=== PATIENT | female | born 1955 | race Caucasian/White ===

== ENCOUNTER → 2016-12-11 | Outpatient (CLI) | payer OTHER ==
[2016-12-11 10:30] LABS: Basophils # (auto) 0 uL; Basophils % (auto) 0.5 % (0.0-2.0); Eosinophils # (auto) 0.1 uL; Eosinophils % (auto) 1.7 % (0.0-7.0); Hematocrit 43.5 % (36.0-46.0); Hemoglobin 14.7 g/dL (12.2-16.2); Lymphocytes % (auto) 32.6 % (10.0-50.0); Mean Corpuscular Hemoglobin 27.8 pg (28.0-32.0); Mean Corpuscular Hgb Conc. 33.8 g/dL (32.0-36.0); Mean Corpuscular Volume 82.4 fL (80.0-100.0); Mean Platelet Volume 10.5 fL (7.4-10.4); Monocytes # (auto) 0.4 uL; Neutrophils # (auto) 3.6 uL; Neutrophils % (auto) 59.2 % (37.0-80.0); Platelet Count (auto) 203 10^3/uL (140-450)
[2016-12-11 10:49] LABS: Albumin 4.1 g/dL (3.4-5.0); BUN/Creatinine Ratio 17.4; Bilirubin, Total 0.7 mg/dL (0.2-1.0); Calcium 9.4 mg/dL (8.5-10.1); Potassium 3.8 mmol/L (3.5-5.1)
== END | disposition home or self-care (01) ==
LOC: LAB 08:50
PROVIDERS: ATTEND Internal Medicine
DX: R10.9 Unspecified abdominal pain (principal); E10.9 Type 1 diabetes mellitus without complications
CPT/HCPCS: 36415; 80053; 85025; 85049; 86038; 86141; 86431; 86704; 86705; 86706; 86803; 87340

== ENCOUNTER → 2017-02-13 | Outpatient (CLI) | payer OTHER | END | disposition home or self-care (01) | LOC: LAB 11:23 | DX: M10.00 Idiopathic gout, unspecified site (principal); M06.9 Rheumatoid arthritis, unspecified; M25.50 Pain in unspecified joint; M45.0 Ankylosing spondylitis of multiple sites in spine | CPT/HCPCS: 36415; 84550 ==

== ENCOUNTER → 2017-04-02 | Outpatient (CLI) | payer OTHER, MEDICAID ==
[2017-04-02 10:54] LABS: Basophils # (auto) 0 uL; Basophils % (auto) 0.7 % (0.0-2.0); Eosinophils # (auto) 0.1 uL; Eosinophils % (auto) 1.5 % (0.0-7.0); Hematocrit 39.3 % (36.0-46.0); Hemoglobin 13.4 g/dL (12.2-16.2); Lymphocytes # (auto) 1.8 uL; Lymphocytes % (auto) 37.1 % (10.0-50.0); Mean Corpuscular Hemoglobin 28.4 pg (28.0-32.0); Mean Corpuscular Volume 83.3 fL (80.0-100.0); Mean Platelet Volume 11.7 fL (7.4-10.4); Monocytes # (auto) 0.3 uL; Monocytes % (auto) 6.3 % (0.0-12.0); Neutrophils # (auto) 2.7 uL; Neutrophils % (auto) 54.4 % (37.0-80.0); Platelet Count (auto) 160 10^3/uL (140-450); Red Cell Distribution Width 14.8 % (11.6-16.0); White Blood Cell 4.9 10^3/uL (4.4-10.8)
[2017-04-02 11:02] LABS: Urine Protein/Creatinine Ratio 0.62
[2017-04-02 11:05] LABS: Albumin 3.9 g/dL (3.4-5.0); BUN/Creatinine Ratio 11.4; Bilirubin, Total 0.6 mg/dL (0.2-1.0); Calcium 9.1 mg/dL (8.5-10.1); Potassium 3.7 mmol/L (3.5-5.1); Total Protein 7.4 g/dL (6.4-8.2)
== END | disposition home or self-care (01) ==
LOC: LAB 08:31
DX: E11.65 Type 2 diabetes mellitus with hyperglycemia (principal); E28.2 Polycystic ovarian syndrome; E55.9 Vitamin D deficiency, unspecified
CPT/HCPCS: 36415; 80053; 80061; 82043; 82306; 82570; 83036; 84156; 84403; 84443; 85025; 85652; 86141

== ENCOUNTER → 2017-06-19 | Outpatient (CLI) | payer OTHER, MEDICAID ==
[2017-06-19 15:19] LABS: Basophils # (auto) 0 uL; Basophils % (auto) 0.4 % (0.0-2.0); CONDITION Y; Eosinophils # (auto) 0.1 uL; Eosinophils % (auto) 1.3 % (0.0-7.0); Hematocrit 38.9 % (36.0-46.0); Hemoglobin 13.6 g/dL (12.2-16.2); Lymphocytes # (auto) 2.3 uL; Lymphocytes % (auto) 33.4 % (10.0-50.0); Mean Corpuscular Hemoglobin 30.8 pg (28.0-32.0); Mean Corpuscular Hgb Conc. 35.1 g/dL (32.0-36.0); Mean Corpuscular Volume 87.9 fL (80.0-100.0); Mean Platelet Volume 10.6 fL (7.4-10.4); Monocytes # (auto) 0.5 uL; Monocytes % (auto) 7.6 % (0.0-12.0); Neutrophils % (auto) 57.3 % (37.0-80.0); Platelet Count (auto) 189 10^3/uL (140-450); Red Cell Distribution Width 15.4 % (11.6-16.0)
[2017-06-19 15:30] LABS: Albumin 4.2 g/dL (3.4-5.0); BUN/Creatinine Ratio 15.4; Bilirubin, Total 0.6 mg/dL (0.2-1.0); Calcium 9.5 mg/dL (8.5-10.1); Potassium 3.7 mmol/L (3.5-5.1); Total Protein 7.9 g/dL (6.4-8.2)
== END | disposition home or self-care (01) ==
LOC: LAB 14:50
DX: I10 Essential (primary) hypertension (principal); M25.50 Pain in unspecified joint; D64.9 Anemia, unspecified; M06.9 Rheumatoid arthritis, unspecified
CPT/HCPCS: 36415; 80053; 85025; 85652; 86141

== ENCOUNTER → 2017-08-06 | Outpatient (CLI) | payer OTHER, MEDICAID ==
[2017-08-06 07:30] LABS: Cholesterol 189 mg/dL (< 200); HDL Cholesterol 38 mg/dL (40-59); LDL Cholesterol 112 mg/dL (< 100); Triglycerides 271 mg/dL (< 150)
[2017-08-06 07:39] LABS: INR 1.12 (0.9-1.15); Partial Thromboplastin Time 28.2 sec (22.64-33.71); Prothrombin Time 12.2 sec (9.37-12.3)
== END | disposition home or self-care (01) ==
LOC: LAB 06:48
PROVIDERS: ATTEND Internal Medicine
DX: K76.0 Fatty (change of) liver, not elsewhere classified (principal); E11.9 Type 2 diabetes mellitus without complications; E78.00 Pure hypercholesterolemia, unspecified
CPT/HCPCS: 36415; 80061; 83036; 85610; 85730

== ENCOUNTER → 2017-08-21 | Outpatient (CLI) | payer OTHER, MEDICAID ==
[2017-08-21 11:16] LABS: Albumin 4.2 g/dL (3.4-5.0); Bilirubin, Direct 0.2 mg/dL (0-0.2); Bilirubin, Total 0.6 mg/dL (0.2-1.0); Total Protein 7.8 g/dL (6.4-8.2)
[2017-08-23 05:06] LABS: Ceruloplasmin 31.7 mg/dL (19.0-39.0)
== END | disposition home or self-care (01) ==
LOC: LAB 09:41
PROVIDERS: ATTEND Internal Medicine Gastroenterology
DX: Z87.19 Personal history of other diseases of the digestive system (principal); Z79.899 Other long term (current) drug therapy
CPT/HCPCS: 36415; 80076; 82390; 83540; 83550

== ENCOUNTER → 2017-10-03 | Outpatient (CLI) | payer OTHER, MEDICAID ==
[2017-10-03 11:10] LABS: Basophils # (auto) 0 uL; Basophils % (auto) 0.7 % (0.0-2.0); Eosinophils # (auto) 0.1 uL; Hematocrit 40.4 % (36.0-46.0); Hemoglobin 13.8 g/dL (12.2-16.2); Lymphocytes # (auto) 1.7 uL; Lymphocytes % (auto) 28.2 % (10.0-50.0); Mean Corpuscular Hemoglobin 29.7 pg (28.0-32.0); Mean Corpuscular Hgb Conc. 34.2 g/dL (32.0-36.0); Mean Corpuscular Volume 86.8 fL (80.0-100.0); Monocytes # (auto) 0.5 uL; Monocytes % (auto) 7.7 % (0.0-12.0); Neutrophils # (auto) 3.7 uL; Neutrophils % (auto) 62.4 % (37.0-80.0); Platelet Count (auto) 153 10^3/uL (140-450); Red Blood Cells 4.65 10^6/uL (4.0-5.20); Red Cell Distribution Width 14.4 % (11.8-14.3); White Blood Cell 5.9 10^3/uL (4.4-10.8)
[2017-10-03 12:11] LABS: BUN/Creatinine Ratio 13.6; Bilirubin, Total 0.5 mg/dL (0.2-1.0); CRP High Sensitivity 0.88 mg/dL (< 0.3); Calcium 9.2 mg/dL (8.5-10.1); Total Protein 7.9 g/dL (6.4-8.2)
== END | disposition home or self-care (01) ==
LOC: LAB 10:40
DX: I10 Essential (primary) hypertension (principal); D64.9 Anemia, unspecified; M25.50 Pain in unspecified joint; M06.9 Rheumatoid arthritis, unspecified; I70.0 Atherosclerosis of aorta; E78.00 Pure hypercholesterolemia, unspecified; Z79.899 Other long term (current) drug therapy
CPT/HCPCS: 36415; 80053; 85025; 85652; 86141

== ENCOUNTER → 2017-12-10 | Outpatient (CLI) | payer OTHER, MEDICAID ==
[~2017-12-10] MED LIST: ARIP1TAB7 PO; ASPI-231 PO; BUPR-40 PO; ESCI10TA PO; FENO5TAB PO; FINA5TAB4 PO; FURO20TA3 PO; GABA250S2 PO; HYDR-3682 PO; HYDR-4683 PO; HYDR50TA69 PO; INSLANTI SC; LACT10SO66 PO; LIDO5DIS21 TOP; OMEP20TA PO; POTA10TA51 PO
[2017-12-10 11:59] LABS: Basophils # (auto) 0.1 uL; Basophils % (auto) 0.8 % (0.0-2.0); Eosinophils # (auto) 0.1 uL; Eosinophils % (auto) 1.5 % (0.0-7.0); Hematocrit 42.1 % (36.0-46.0); Hemoglobin 14.6 g/dL (12.2-16.2); Lymphocytes # (auto) 2.3 uL; Lymphocytes % (auto) 32.2 % (10.0-50.0); Mean Corpuscular Hemoglobin 29.3 pg (28.0-32.0); Mean Corpuscular Hgb Conc. 34.7 g/dL (32.0-36.0); Mean Corpuscular Volume 84.5 fL (80.0-100.0); Monocytes # (auto) 0.6 uL; Monocytes % (auto) 8.9 % (0.0-12.0); Neutrophils % (auto) 56.6 % (37.0-80.0); Nucleated Red Blood Cells % 0.2 %; Platelet Count (auto) 187 10^3/uL (140-450); Red Blood Cells 4.98 10^6/uL (4.0-5.20); Red Cell Distribution Width 15.2 % (11.8-14.3); White Blood Cell 7.1 10^3/uL (4.4-10.8)
[2017-12-10 12:29] LABS: Albumin 4.1 g/dL (3.4-5.0); BUN/Creatinine Ratio 12.1; Bilirubin, Total 0.7 mg/dL (0.2-1.0); Calcium 9.5 mg/dL (8.5-10.1); Magnesium 2.2 mg/dL (1.6-2.6); Total Protein 7.8 g/dL (6.4-8.2)
== END | disposition home or self-care (01) ==
LOC: LAB 11:26
PROVIDERS: ATTEND Internal Medicine
DX: R25.2 Cramp and spasm (principal); E11.9 Type 2 diabetes mellitus without complications
CPT/HCPCS: 36415; 80053; 82550; 83036; 83735; 85025

== ENCOUNTER 2017-12-21 13:48 | Inpatient (IN) | payer OTHER, MEDICAID ==
[~2017-12-21] VITALS: Ht 165.1 cm; Wt 135.9 kg
[2017-12-21 14:36] LABS: Basophils # (auto) 0.1 uL; Basophils % (auto) 0.9 % (0.0-2.0); Eosinophils # (auto) 0.1 uL; Eosinophils % (auto) 1.4 % (0.0-7.0); Hematocrit 40.8 % (36.0-46.0); Hemoglobin 13.9 g/dL (12.2-16.2); Lymphocytes # (auto) 1.8 uL; Mean Corpuscular Volume 85.2 fL (80.0-100.0); Monocytes # (auto) 0.5 uL; Monocytes % (auto) 7.5 % (0.0-12.0); Neutrophils % (auto) 62.2 % (37.0-80.0); Nucleated Red Blood Cells % 0.2 %; Platelet Count (auto) 179 10^3/uL (140-450); Red Blood Cells 4.79 10^6/uL (4.0-5.20); Red Cell Distribution Width 15.6 % (11.8-14.3); White Blood Cell 6.3 10^3/uL (4.4-10.8)
[2017-12-21 14:51] LABS: BUN/Creatinine Ratio 14.6; Bilirubin, Total 0.5 mg/dL (0.2-1.0); Calcium 9.1 mg/dL (8.5-10.1); Potassium 4.2 mmol/L (3.5-5.1); Total Protein 7.7 g/dL (6.4-8.2)
[2017-12-21] MEDS ORDERED: SODIUM CHLORIDE 0.9% 1,000 ML IVB ONE (16:31)
[2017-12-21 16:56] LABS: Magnesium 2.3 mg/dL (1.6-2.6)
[2017-12-21 17:05] LABS: Urine Bacteria NONE SEEN /hpf (None Seen); Urine Blood Negative /uL (Negative); Urine Specific Gravity 1.016 (1.001-1.035); Urine WBC 1 /hpf (0 - 5)
[2017-12-21] MEDS ORDERED: cefTRIAXone 1GM/10ml IVPUSH 10 ML IV ONE (18:00)
[2017-12-21 18:45] LABS: INR 1.03 (0.9-1.15); Partial Thromboplastin Time 24.6 sec (22.64-33.71); Prothrombin Time 11.2 sec (9.37-12.3)
[2017-12-21] MEDS ORDERED: OMEP20TA PO (20:34)
[2017-12-21] MEDS ORDERED: FINA5TAB4 PO (20:37)
[2017-12-21] MEDS ORDERED: ASPI-231 PO (20:37)
[2017-12-21] MEDS ORDERED: HYDR-4683 PO (20:38)
[2017-12-21] MEDS ORDERED: GABA250S2 PO (20:39)
[2017-12-21] MEDS ORDERED: FURO20TA3 PO (20:40)
[2017-12-21] MEDS ORDERED: POTA10TA51 PO (20:41)
[2017-12-21] MEDS ORDERED: LACT10SO66 PO (20:42)
[2017-12-21] MEDS ORDERED: LIDO5DIS21 TOP (20:43)
[2017-12-21] MEDS ORDERED: HYDR50TA69 PO (20:44)
[2017-12-21] MEDS ORDERED: HYDR-3682 PO (20:44)
[2017-12-21] MEDS: SODIUM CHLORIDE 0.9% 1,000 ML IV SCH (21:25)
[2017-12-21] MEDS ORDERED: ACETAMINOPHEN 325 MG TAB PO PRN (21:30)
[2017-12-21] MEDS ORDERED: DEXTROSE (50%) 50ML SYRG IV PRN (21:30)
[2017-12-21] MEDS ORDERED: TEMAZEPAM 15 MG CAP PO PRN (21:30)
[2017-12-21] MEDS ORDERED: NITROGLYCERIN 0.4 MG SL TAB SL PRN (21:30)
[2017-12-21] MEDS ORDERED: MORPHINE SULF INJ 2 MG/ML SYRINGE 1ML IV PRN (21:30)
[2017-12-21] MEDS ORDERED: ABILIFY 30 MG PO SCH (22:00)
[2017-12-21] MEDS: PANTOPRAZOLE 40 MG/10 ML VIAL IV SCH (22:06)
[2017-12-21] MEDS: FAMOTIDINE 20 MG TAB PO SCH (22:07)
[2017-12-21] MEDS: GABAPENTIN 300 MG CAP PO SCH (22:07)
[2017-12-21] MEDS: hydrOXYzine HCL 10 MG TAB PO PRN (22:18)
[2017-12-21 22:30] VITALS: BP 113/58
[2017-12-21] MEDS ORDERED: INSLANTI SC (22:38)
[2017-12-21 23:08] LABS: Hematocrit 37.2 % (36.0-46.0)
[2017-12-21] MEDS: ACCU-CHEK COMFORT CURVE STRIP VI SCH (23:52)
[2017-12-21] MEDS: InsuLIN REG 1unit/0.01ml Soln (100units/ml) SC SCH (23:56)
[2017-12-22] MEDS ORDERED: FENO5TAB PO (00:27)
[2017-12-22] MEDS ORDERED: BUPR-40 PO (00:27)
[2017-12-22] MEDS ORDERED: HYDR50TA69 PO (00:27)
[2017-12-22] MEDS ORDERED: ARIP1TAB7 PO (00:27)
[2017-12-22] MEDS ORDERED: ESCI10TA PO (00:27)
[2017-12-22] MEDS: HYDROcodone-ACET 5/325MG TAB PO PRN ×4 (00:43→16:56)
[2017-12-22 05:00] VITALS: BP 116/74
[2017-12-22] MEDS: GABAPENTIN 300 MG CAP PO SCH ×3 (05:22→21:37)
[2017-12-22] MEDS: ACCU-CHEK COMFORT CURVE STRIP VI SCH ×4 (05:22→23:58)
[2017-12-22] MEDS: InsuLIN REG 1unit/0.01ml Soln (100units/ml) SC SCH ×4 (05:57→23:58)
[2017-12-22 06:12] LABS: Basophils # (auto) 0 uL; Basophils % (auto) 0.7 % (0.0-2.0); Eosinophils # (auto) 0.1 uL; Eosinophils % (auto) 2.3 % (0.0-7.0); Hematocrit 37.2 % (36.0-46.0); Hemoglobin 12.8 g/dL (12.2-16.2); Lymphocytes # (auto) 1.4 uL; Lymphocytes % (auto) 30.8 % (10.0-50.0); Mean Corpuscular Hgb Conc. 34.5 g/dL (32.0-36.0); Mean Corpuscular Volume 84.2 fL (80.0-100.0); Monocytes # (auto) 0.4 uL; Monocytes % (auto) 8.6 % (0.0-12.0); Neutrophils # (auto) 2.6 uL; Neutrophils % (auto) 57.6 % (37.0-80.0); Platelet Count (auto) 136 10^3/uL (140-450); Red Blood Cells 4.41 10^6/uL (4.0-5.20); Red Cell Distribution Width 15.2 % (11.8-14.3); White Blood Cell 4.5 10^3/uL (4.4-10.8)
[2017-12-22 06:33] LABS: Albumin 3.5 g/dL (3.4-5.0); BUN/Creatinine Ratio 15.5; Bilirubin, Total 0.6 mg/dL (0.2-1.0); Calcium 8.3 mg/dL (8.5-10.1); Potassium 3.9 mmol/L (3.5-5.1); Total Protein 6.7 g/dL (6.4-8.2)
[2017-12-22 09:00] VITALS: BP 119/77
[2017-12-22] MEDS: buPROPion HCL 75 MG TAB PO SCH (10:57)
[2017-12-22] MEDS: FUROSEMIDE 40 MG TAB PO SCH (10:57)
[2017-12-22] MEDS: FAMOTIDINE 20 MG TAB PO SCH ×2 (10:57→21:37)
[2017-12-22] MEDS: PANTOPRAZOLE 40 MG/10 ML VIAL IV SCH ×2 (10:57→21:36)
[2017-12-22] MEDS: ENOXAPARIN SOD 40 MG/0.4 ML SYRINGE SC SCH (10:58)
[2017-12-22] MEDS ORDERED: GOLYTELY 4L KIT PO ONE (12:15)
[2017-12-22] MEDS ORDERED: GOLYTELY 4L KIT ONE (12:24)
[2017-12-22 12:31] VITALS: BP 133/88
[2017-12-22] MEDS: ONDANSETRON HCL 4 MG/2 ML VIAL IV PRN ×2 (14:45→18:59)
[2017-12-22] MEDS: hydrOXYzine HCL 10 MG TAB PO PRN (14:52)
[2017-12-22] MEDS ORDERED: cefTRIAXone 1GM/10ml IVPUSH 10 ML IV ONE (15:45)
[2017-12-22 16:30] VITALS: BP 117/57
[2017-12-22] MEDS: SODIUM CHLORIDE 0.9% 1,000 ML IV SCH (16:56)
[2017-12-22 21:30] VITALS: BP 117/57
[2017-12-22 22:20] VITALS: BP 117/67
[2017-12-23] MEDS: SODIUM CHLORIDE 0.9% 1,000 ML IV SCH ×2 (00:04→14:27)
[2017-12-23] MEDS: HYDROcodone-ACET 5/325MG TAB PO PRN ×2 (00:12→20:03)
[2017-12-23 04:27] VITALS: BP 138/68
[2017-12-23] MEDS: GABAPENTIN 300 MG CAP PO SCH ×3 (05:21→21:06)
[2017-12-23] MEDS: InsuLIN REG 1unit/0.01ml Soln (100units/ml) SC SCH ×5 (05:33→23:51)
[2017-12-23] MEDS: ACCU-CHEK COMFORT CURVE STRIP VI SCH ×4 (05:34→23:47)
[2017-12-23] MEDS ORDERED: GOLYTELY 4L KIT PO ONE (06:00)
[2017-12-23 08:00] VITALS: BP 119/72
[2017-12-23] MEDS ORDERED: MIDAZOLAM HCL 5 MG/ML-1ML VIAL ONE (08:17)
[2017-12-23] MEDS ORDERED: SODIUM CHLORIDE LOCK 10 ML ONE (08:17)
[2017-12-23] MEDS ORDERED: fentaNYL CITRATE 100 MCG/2 ML VL ONE (08:18)
[2017-12-23] MEDS ORDERED: diphenhdrAMINE HCL 50 MG/1 ML VL ONE (08:18)
[2017-12-23 09:00] VITALS: BP 119/72
[2017-12-23] MEDS: PANTOPRAZOLE 40 MG/10 ML VIAL IV SCH ×2 (09:16→21:05)
[2017-12-23] MEDS: ENOXAPARIN SOD 40 MG/0.4 ML SYRINGE SC SCH (09:16)
[2017-12-23] MEDS: cefTRIAXone 1GM/10ml IVPUSH 10 ML IV SCH (09:17)
[2017-12-23] MEDS: FAMOTIDINE 20 MG TAB PO SCH ×2 (09:18→21:06)
[2017-12-23] MEDS: buPROPion HCL 75 MG TAB PO SCH (09:18)
[2017-12-23] MEDS: FUROSEMIDE 40 MG TAB PO SCH (09:18)
[2017-12-23] MEDS ORDERED: fentaNYL 100MCG/HR 100 MCG/HR PAT TD ONE (13:22)
[2017-12-23] MEDS ORDERED: MIDAZOLAM HCL 1MG/1ML-2 ML VIAL IV ONE (13:22)
[2017-12-23] MEDS ORDERED: PROPOFOL 10 MG/ML 100ML BOTTLE IV ONE (13:22)
[2017-12-23 17:03] VITALS: BP 105/48
[2017-12-23] MEDS ORDERED: ABILIFY 2 MG PO SCH (22:00)
[2017-12-23 22:48] VITALS: BP 112/46
[2017-12-24] MEDS: HYDROcodone-ACET 5/325MG TAB PO PRN (00:07)
[2017-12-24] MEDS: SODIUM CHLORIDE 0.9% 1,000 ML IV SCH (02:15)
[2017-12-24] MEDS: ACCU-CHEK COMFORT CURVE STRIP VI SCH ×2 (05:39→12:28)
[2017-12-24] MEDS: GABAPENTIN 300 MG CAP PO SCH (05:39)
[2017-12-24] MEDS: InsuLIN REG 1unit/0.01ml Soln (100units/ml) SC SCH ×2 (05:39→12:28)
[2017-12-24 06:23] VITALS: BP 127/67
[2017-12-24 08:00] VITALS: BP 123/64
[2017-12-24 09:00] VITALS: BP 123/64
[2017-12-24] MEDS: FUROSEMIDE 40 MG TAB PO SCH (10:00)
[2017-12-24] MEDS ORDERED: HYDROCORTISONE ACET 25 MG RECTAL SUPP PR SCH (10:00)
[2017-12-24] MEDS ORDERED: buPROPion HCL 75 MG TAB ONE (10:23)
[2017-12-24] MEDS: FAMOTIDINE 20 MG TAB PO SCH (10:35)
[2017-12-24] MEDS: PANTOPRAZOLE 40 MG/10 ML VIAL IV SCH (10:37)
[2017-12-24] MEDS: buPROPion HCL 75 MG TAB PO SCH (10:37)
[2017-12-24] MEDS: ENOXAPARIN SOD 40 MG/0.4 ML SYRINGE SC SCH (10:37)
[2017-12-24] MEDS: cefTRIAXone 1GM/10ml IVPUSH 10 ML IV SCH (10:38)
[2017-12-24 11:24] VITALS: BP 122/64
== END 2017-12-24 14:00 | disposition home or self-care (01) | DRG 377 ==
LOC: ER 13:48 → TELE 13:49 → TELE-CENTR 22:30
PROVIDERS: ADMIT Nurse Practitioner; ATTEND Family Medicine
PROC: 0DJD8ZZ Inspection of Lower Intestinal Tract, Via Natural or Artificial Opening Endoscopic (ICD-10-PCS; principal; 2017-12-23 12:27)
DX: K62.5 Hemorrhage of anus and rectum (principal); J18.1 Lobar pneumonia, unspecified organism; I11.0 Hypertensive heart disease with heart failure; E11.65 Type 2 diabetes mellitus with hyperglycemia; I50.9 Heart failure, unspecified; K76.0 Fatty (change of) liver, not elsewhere classified; E66.01 Morbid (severe) obesity due to excess calories; J44.0 Chronic obstructive pulmonary disease with (acute) lower respiratory infection; F32.9 Major depressive disorder, single episode, unspecified; M19.90 Unspecified osteoarthritis, unspecified site; K64.4 Residual hemorrhoidal skin tags; K64.8 Other hemorrhoids; Z79.4 Long term (current) use of insulin; Z68.42 Body mass index [BMI] 45.0-49.9, adult; Z90.710 Acquired absence of both cervix and uterus
CPT/HCPCS: 36415; 45378; 51702; 71045; 74176; 80053; 81001; 82962; 83036; 83690; 83735; 84443; 85014; 85018; 85025; 85610; 85730; 86850; 86900; 86901; 87040; 93005; 94660; 94761; 96361; 96372; 96374; C9113; J1815; J2250; J2405; J2704

== ENCOUNTER 2019-03-25 22:53 | Emergency (ER) | payer OTHER, MEDICAID ==
[~2019-03-25] VITALS: Ht 162.6 cm; Wt 135.2 kg
[2019-03-26 02:01] LABS: Basophils # (auto) 0.1 uL; Basophils % (auto) 0.9 % (0.0-2.0); Eosinophils # (auto) 0.1 uL; Eosinophils % (auto) 1.7 % (0.0-7.0); Hemoglobin 13.8 g/dL (12.2-16.2); Lymphocytes # (auto) 1.5 uL; Lymphocytes % (auto) 20.5 % (10.0-50.0); Mean Corpuscular Hemoglobin 29.1 pg (28.0-32.0); Mean Corpuscular Hgb Conc. 34.6 g/dL (32.0-36.0); Mean Corpuscular Volume 84.2 fL (80.0-100.0); Monocytes # (auto) 0.7 uL; Neutrophils # (auto) 4.9 uL; Neutrophils % (auto) 67.9 % (37.0-80.0); Platelet Count (auto) 159 10^3/uL (140-450); Red Blood Cells 4.75 10^6/uL (4.0-5.20); Red Cell Distribution Width 14.3 % (11.8-14.3); White Blood Cell 7.3 10^3/uL (4.4-10.8)
[2019-03-26 02:11] LABS: INR 1.04 (0.9-1.15); Partial Thromboplastin Time 28.8 sec (23.78-33.04); Prothrombin Time 11.1 sec (9.27-12.13)
[2019-03-26 02:12] LABS: Albumin 3.8 g/dL (3.4-5.0); Anion Gap 10 (5-15); Blood Urea Nitrogen 12 mg/dL (7-18); Carbon Dioxide 23 mmol/L (21-32); Chloride 105 mmol/L (98-107); Glucose 174 mg/dL (74-106); Potassium 3.8 mmol/L (3.5-5.1); Sodium 138 mmol/L (136-145)
[2019-03-26 02:15] LABS: Alanine Aminotransferase 64 U/L (13-56); Aspartate Aminotransferase 33 U/L (15-37); GFR African American 93 mL/min; GFR Non-African American 77 mL/min
[2019-03-26 02:19] LABS: Alkaline Phosphatase 120 U/L (45-117); Bilirubin, Total 0.6 mg/dL (0.2-1.0); Total Protein 7.6 g/dL (6.4-8.2)
[2019-03-26 07:48] VITALS: BP 140/71
== END 2019-03-26 09:04 | disposition home or self-care (01) ==
LOC: ER 22:55
DX: K64.9 Unspecified hemorrhoids (principal); I11.0 Hypertensive heart disease with heart failure; I50.9 Heart failure, unspecified; E11.9 Type 2 diabetes mellitus without complications; Z90.710 Acquired absence of both cervix and uterus; Z88.8 Allergy status to other drugs, medicaments and biological substances; Z79.82 Long term (current) use of aspirin; Z79.4 Long term (current) use of insulin; Z79.899 Other long term (current) drug therapy
CPT/HCPCS: 36415; 74176; 80053; 84484; 85025; 85610; 85730; 94761

== ENCOUNTER 2019-07-05 10:04 | Emergency (ER) | payer OTHER, MEDICAID ==
[~2019-07-05] VITALS: Ht 160 cm; Wt 136.1 kg
[~2019-07-05 10:04] MED LIST changes: -HYDR-4683 PO; +HYDR-4833 PO; -LACT10SO66 PO; +LACT10SO70 PO
[2019-07-05 11:30] VITALS: BP 133/56
[2019-07-05] MEDS ORDERED: cefTRIAXone SOD 1,000 MG VL IM ONE (12:00)
[2019-07-05] MEDS ORDERED: FLUCONAZOLE 100 MG TAB PO ONE (12:30)
[2019-07-05] MEDS ORDERED: diphenhdrAMINE HCL 25 MG CAP PO ONE (12:30)
== END 2019-07-05 13:24 | disposition home or self-care (01) ==
LOC: ER 10:07
DX: B35.6 Tinea cruris (principal); B35.4 Tinea corporis; I11.0 Hypertensive heart disease with heart failure; I50.9 Heart failure, unspecified; E11.9 Type 2 diabetes mellitus without complications; E78.5 Hyperlipidemia, unspecified; Z90.710 Acquired absence of both cervix and uterus; Z88.6 Allergy status to analgesic agent; Z79.82 Long term (current) use of aspirin; Z79.4 Long term (current) use of insulin; Z79.899 Other long term (current) drug therapy
CPT/HCPCS: 96372; 99283; J0696

== ENCOUNTER 2020-09-29 08:03 | Inpatient (IN) | payer OTHER, MEDICAID ==
[2020-09-23 15:28] LABS: Urine Amorphous Crystal FEW /hpf (None Seen); Urine Bacteria FEW /hpf (None Seen); Urine Blood Negative /uL (Negative); Urine WBC 59 /hpf (0 - 5); Urine WBC Clumps PRESENT /hpf (None Seen)
[2020-09-23 15:33] LABS: Basophils # (auto) 0.1 10 ^3/uL (0-0.2); Basophils % (auto) 1.2 % (0.0-2.0); Eosinophils # (auto) 0.2 10 ^3/uL (0-0.8); Eosinophils % (auto) 2.3 % (0.0-7.0); Hemoglobin 14.2 g/dL (12.2-16.2); Lymphocytes # (auto) 2.3 10 ^3/uL (0.4-5.4); Lymphocytes % (auto) 25.6 % (10.0-50.0); Mean Corpuscular Hemoglobin 28.6 pg (28.0-32.0); Mean Corpuscular Hgb Conc. 34.6 g/dL (32.0-36.0); Mean Corpuscular Volume 82.7 fL (80.0-100.0); Monocytes # (auto) 0.7 10 ^3/uL (0-1.3); Monocytes % (auto) 8.3 % (0.0-12.0); Neutrophils # (auto) 5.6 10 ^3/uL (1.6-8.6); Neutrophils % (auto) 62.6 % (37.0-80.0); Nucleated Red Blood Cells % 0.3 %; Platelet Count (auto) 190 10^3/uL (140-450); Red Blood Cells 4.96 10^6/uL (4.0-5.20); Red Cell Distribution Width 15.7 % (11.8-14.3); White Blood Cell 8.9 10^3/uL (4.4-10.8)
[2020-09-23 15:41] LABS: INR 1.08 (0.9-1.15); Partial Thromboplastin Time 25.6 sec (23.0-31.2)
[2020-09-23 15:47] LABS: Albumin 3.7 g/dL (3.4-5.0); BUN/Creatinine Ratio 15.2; Calcium 9.3 mg/dL (8.5-10.1); Potassium 4.2 mmol/L (3.5-5.1)
[2020-09-23 15:49] LABS: Bilirubin, Total 0.6 mg/dL (0.2-1.0); Total Protein 8.1 g/dL (6.4-8.2)
[~2020-09-29] VITALS: Ht 162.6 cm; Wt 150.6 kg
[~2020-09-29 08:03] MED LIST changes: +AMIT100T75 PO; -ARIP1TAB7 PO; +BETH50TA2 PO; -BUPR-40 PO; +CARI1CAP4 PO; +CHOL500035 PO; +DULO60CA PO; -ESCI10TA PO; +EZET10TA22 PO; -FENO5TAB PO; -FINA5TAB4 PO; -FURO20TA3 PO; +GABA100C9 PO; -GABA250S2 PO; -HYDR-3682 PO; -HYDR50TA69 PO; -INSLANTI SC; -LACT10SO70 PO; -LIDO5DIS21 TOP; -OMEP20TA PO; +OXYB10TA14 PO; +PIO30T PO; -POTA10TA51 PO; +PROP20TA73 PO; +ROSU20TA14 PO
[2020-09-29] MEDS ORDERED: CIPROFLOXACIN 400MG/200ML 200 ML IV ONE (13:01)
[2020-09-29] MEDS ORDERED: fentaNYL CITRATE 100 MCG/2 ML VL ONE (14:42)
[2020-09-29] MEDS ORDERED: PROPOFOL 10 MG/ML 20 ML IV ONE (14:42)
[2020-09-29] MEDS ORDERED: ONDANSETRON HCL 4 MG/2 ML VIAL ONE (14:42)
[2020-09-29] MEDS ORDERED: SODIUM CHLORIDE LOCK 10 ML ONE (14:42)
[2020-09-29] MEDS ORDERED: MIDAZOLAM HCL 1MG/1ML-2 ML VIAL ONE (14:42)
[2020-09-29] MEDS ORDERED: KETAMINE HCL 10 ML ONE (14:43)
[2020-09-29] MEDS ORDERED: TETRACAINE 1% INJ 2 ML VIAL IJ ONE (15:02)
[2020-09-29] MEDS ORDERED: MORPHINE SULF INJ 2 MG/ML SYRINGE 1ML IV PRN (16:15)
[2020-09-29] MEDS ORDERED: NITROGLYCERIN 0.4 MG SL TAB SL PRN (16:15)
[2020-09-29] MEDS ORDERED: ACCU-CHEK COMFORT CURVE STRIP VI ONE (16:30)
[2020-09-29] MEDS ORDERED: ePHEDrine SULFATE 50 MG/ML AMP IV PRN (16:30)
[2020-09-29] MEDS ORDERED: ONDANSETRON HCL 4 MG/2 ML VIAL IV PRN (16:30)
[2020-09-29] MEDS ORDERED: DEXTROSE (50%) 50ML SYRG IV PRN (17:15)
--- NOTE | 2020-09-29 17:30 | NUR ---
Telemetry admit from [facility] admitted to Telemetry unit after SBAR received s/p cystoscopy with biopsy and fulguration. Patient oriented to USAMA WOODALL RN primary RN, unit, room, bed, and unit policies regarding patient care and visiting hours. Patient now on continuous telemetry monitoring, tele box #[id number] and telemetry reading on arrival to unit is SR. Patient placed on bedside oxygen, weighed by bedscale and encouraged to call if they need something. All questions and concerns addressed, patient verbalized understanding.
[2020-09-29 17:55] VITALS: BP 142/79
[2020-09-29 18:00] VITALS: BP 142/79
--- NOTE | 2020-09-29 19:30 | NUR ---
Opening Shift Note Assumed care of patient, awake and alert. No S/S of distress/SOB or pain. Rodriges draining to cloudy yellow urine output. Updated on POC and to call for assist PRN, patient verbalized understanding. Bed in lowest position, bed alarm on, call light within reach, will continue to monitor for changes Q1hr and PRN.
[2020-09-29 20:00] VITALS: BP 124/54
[2020-09-29] MEDS: InsuLIN REG 1unit/0.01ml Soln (100units/ml) SC SCH (21:30)
[2020-09-29] MEDS: ACCU-CHEK COMFORT CURVE STRIP VI SCH (21:30)
--- NOTE | 2020-09-29 22:30 | NUR ---
Blood sugar of 471 and a recheck of 493. Protocol initiated. Rechecked BS after 1 hour of RI is 453. Patient also complained of SOB, per patient she's on BiPap at home. O2 administered at 3Lpm/NC, O2 Sat at 94-96%. Paged hospitalist, awaiting call back
[2020-09-30] MEDS ORDERED: INSULIN LANTUS (GLARGINE) 1 /0.01ml (100units/ml) SC ONE (00:15)
[2020-09-30 00:44] VITALS: BP 142/79
[2020-09-30] MEDS ORDERED: HYDROcodone-ACET 5/325MG TAB PO PRN (02:45)
--- NOTE | 2020-09-30 02:45 | NUR ---
Patient complained of pain, per patient she's taking [place] at home. Paged hospitalist and spoke to Brenda. New order received and read back
[2020-09-30 05:11] VITALS: BP 124/54
[2020-09-30] MEDS: ACCU-CHEK COMFORT CURVE STRIP VI SCH ×2 (06:34→11:30)
[2020-09-30] MEDS: InsuLIN REG 1unit/0.01ml Soln (100units/ml) SC SCH ×2 (06:36→12:24)
[2020-09-30] MEDS ORDERED: INSULIN LANTUS (GLARGINE) 1 /0.01ml (100units/ml) SC SCH (07:00)
--- NOTE | 2020-09-30 07:20 | NUR ---
Respiratory note: PT WAS AWAKE, AND ALERT. SITTING UP, OFF OF BIPAP. BIPAP AT BEDSIDE. NO RESPIRATORY DISTRESS NOTED. SPO2 93% ON 3L NC, HR 95, RR 18, BS CLEAR BILATERALLY. NO FURTHER RESPIRATORY INTERVENTIONS INDICATED AT THIS TIME. WILL CONTINUE TO MONITOR PT.
--- NOTE | 2020-09-30 07:30 | NUR ---
Opening Shift Note Assumed care of patient, awake and alert. No S/S of distress/SOB or pain. Instructed on POC and to call for assist PRN, will continue to monitor for changes Q1hr and PRN. Fall precautions in place per safety protocol.
[2020-09-30 09:00] VITALS: BP 123/76
--- NOTE | 2020-09-30 10:15 | NUR ---
Urology CASE MANAGEMENT COORDINATOR Jillian at bedside, aware of patient status. Per CASE MANAGEMENT COORDINATOR, she will place DC orders for patient. Patient to be discharged with Rodriges catheter and is to follow-up with Dr Darby in 2 weeks. Will carry out new orders.
--- NOTE | 2020-09-30 12:30 | NUR ---
MANAGER CONSTRUCTION Spoke to RAHEEM Martins regarding patient BS. Per MANAGER CONSTRUCTION, patient may be discharged as patient has insulin pump at home. Will carry on with DC Orders.
[2020-09-30 12:53] VITALS: BP 138/78
[2020-09-30 13:00] VITALS: BP 138/78
--- NOTE | 2020-09-30 13:45 | NUR ---
Discharge instructions given as ordered. Encourage to follow up with PMD as instructed. All questions and concerns addressed. Patient verbalized understanding. Medication reconciliation form completed and copy given to patient. IV removed with catheter intact, pressure dressing applied. Telemetry unit returned to ICU. Patient taken to vehicle via wheelchair with all personal belongings, accompanied by staff. No distress noted at time of departure.
== END 2020-09-30 13:45 | disposition home or self-care (01) | DRG 670 ==
LOC: SUR 08:03 → TELE-WESTW 08:04
PROVIDERS: ADMIT Urology; ATTEND Urology
PROC: 0TBB8ZX Excision of Bladder, Via Natural or Artificial Opening Endoscopic, Diagnostic (ICD-10-PCS; 2020-09-29)
PROC: 0T5B8ZZ Destruction of Bladder, Via Natural or Artificial Opening Endoscopic (ICD-10-PCS; principal; 2020-09-29 15:15)
DX: N30.20 Other chronic cystitis without hematuria (principal); N32.9 Bladder disorder, unspecified; Z20.828 Contact with and (suspected) exposure to other viral communicable diseases; Z88.8 Allergy status to other drugs, medicaments and biological substances; Z88.5 Allergy status to narcotic agent
CPT/HCPCS: 36415; 80053; 81001; 82962; 85025; 85610; 85730; 94660; G0378; J1815; J2250; J2405; J2704

== ENCOUNTER 2023-02-01 06:18 | Day surgery (SDC) | payer OTHER, MEDICAID ==
[~2023-02-01] VITALS: Ht 167.6 cm; Wt 147.4 kg
[~2023-02-01 06:18] MED LIST changes: -AMIT100T75 PO; +ARIP1TAB7 PO; -ASPI-231 PO; -BETH50TA2 PO; -CARI1CAP4 PO; -CHOL500035 PO; -DULO60CA PO; +ESCI20TA PO; -EZET10TA22 PO; +FURO40TA4 PO; -GABA100C9 PO; +GEMF-19 PO; +HYDR50TA69 PO; +INSU75IN2 SC; -OXYB10TA14 PO; -PIO30T PO; +POTA10TA32 PO; -PROP20TA73 PO; +PROP80CA40 PO; +RIVA10TA PO; -ROSU20TA14 PO
[2023-02-01] MEDS ORDERED: fentaNYL CITRATE 100 MCG/2 ML VL IV ONE (08:15)
[2023-02-01] MEDS ORDERED: MIDAZOLAM HCL 2MG/2ML 2ml VIAL (1mg/ml) IV PRN (08:15)
[2023-02-01] MEDS ORDERED: LIDOCAINE VISCOUS 2% 15ML UD MT PRN (08:15)
[2023-02-01 08:46] VITALS: BP 109/56
[2023-02-01 09:01] VITALS: BP 104/52
[2023-02-01 09:17] VITALS: BP 107/55
[2023-02-01 09:33] VITALS: BP 115/50
[2023-02-01 09:48] VITALS: BP 108/66
== END 2023-02-01 10:05 | disposition home or self-care (01) ==
LOC: CATH 06:18
PROVIDERS: ATTEND Internal Medicine Cardiovascular Disease
DX: R06.02 Shortness of breath (principal); I08.3 Combined rheumatic disorders of mitral, aortic and tricuspid valves; Z20.822 Contact with and (suspected) exposure to COVID-19
CPT/HCPCS: 93312; J2250; J3010; J7040; U0003; 99152

== ENCOUNTER 2023-02-22 06:53 | Day surgery (SDC) | payer OTHER, MEDICAID ==
[2023-02-22] VITALS (9 sets, daily range): BP systolic 90–126; BP diastolic 45–80
[~2023-02-22] VITALS: Ht 165.1 cm; Wt 149.7 kg
[2023-02-22] MEDS ORDERED: IODIXANOL 320MG/ML 100ML BTL IV ONE (08:00)
[2023-02-22] MEDS ORDERED: HEPARIN SODIUM (PORCINE) 5000 UNITS/ML 1ML VIAL ONE (08:00)
[2023-02-22] MEDS ORDERED: LIDOCAINE 2%HCL (LOCAL ANESTH.) INJ 20ML MDV ONE (08:00)
[2023-02-22] MEDS ORDERED: VERAPAMIL 2.5MG/ML INJ 2ML VIAL IV ONE (08:01)
[2023-02-22] MEDS ORDERED: fentaNYL CITRATE 100 MCG/2 ML VL ONE (08:01)
[2023-02-22] MEDS ORDERED: ANGIOMAX 250 MG VIAL IV ONE (08:02)
[2023-02-22] MEDS ORDERED: SODIUM CHL 0.9% 0 ML ONE (08:02)
[2023-02-22] MEDS ORDERED: MIDAZOLAM HCL 2MG/2ML 2ml VIAL (1mg/ml) ONE (08:02)
== END 2023-02-22 11:15 | disposition home or self-care (01) ==
LOC: CATH 06:53
PROVIDERS: ATTEND Internal Medicine Cardiovascular Disease
DX: I25.10 Atherosclerotic heart disease of native coronary artery without angina pectoris (principal); I50.30 Unspecified diastolic (congestive) heart failure; E11.9 Type 2 diabetes mellitus without complications; F41.8 Other specified anxiety disorders; J44.9 Chronic obstructive pulmonary disease, unspecified; G47.30 Sleep apnea, unspecified; E66.01 Morbid (severe) obesity due to excess calories; Z68.43 Body mass index [BMI] 50.0-59.9, adult; Z90.710 Acquired absence of both cervix and uterus; Z87.891 Personal history of nicotine dependence; Z80.8 Family history of malignant neoplasm of other organs or systems; Z82.49 Family history of ischemic heart disease and other diseases of the circulatory system; Z88.8 Allergy status to other drugs, medicaments and biological substances; Z88.5 Allergy status to narcotic agent; Z98.890 Other specified postprocedural states; Z79.891 Long term (current) use of opiate analgesic; Z79.4 Long term (current) use of insulin; Z79.899 Other long term (current) drug therapy; Z20.822 Contact with and (suspected) exposure to COVID-19
CPT/HCPCS: 93458; C1725; C1769; C1894; J1644; J2250; J3010; Q9967; U0003; 99152

== ENCOUNTER 2024-06-01 01:28 | Inpatient (IN) | payer OTHER, MEDICAID ==
[2024-06-01] VITALS (15 sets, daily range): BP systolic 85–123; BP diastolic 38–65; PULSE 78–122; RESP 15–29; TEMP 102.9; O2SAT 93–100
[~2024-06-01] VITALS: Ht 154.9 cm; Wt 132.0 kg
[~2024-06-01 01:28] MED LIST changes: -ARIP1TAB7 PO; +ARIP20TA4 PO; +DULA1INJ SC; -GEMF-19 PO; +GEMF-66 PO; +INSU1INJ SC; +OXYB5TAB14 PO; +POTA-228 PO; -POTA10TA32 PO
[2024-06-01] MEDS ORDERED: NOREPINEPHRINE 8 MG/250ML KIT 250 ML IV ONE (01:33)
[2024-06-01] MEDS ORDERED: ROCURONIUM 10MG/ML 10ML VIAL IV ONE (01:33)
[2024-06-01] MEDS ORDERED: ETOMIDATE (2MG/ML) 20ML VIAL IV ONE (01:33)
[2024-06-01] MEDS: PROPOFOL 100 ML IV ONE (01:38)
[2024-06-01] MEDS: ETOMIDATE (2MG/ML) 20ML VIAL IV ONE (01:41)
[2024-06-01] MEDS: ROCURONIUM 10MG/ML 10ML VIAL IV ONE (01:42)
[2024-06-01] MEDS: SODIUM CHLORIDE 0.9% 1,000 ML IV ONE (01:45)
[2024-06-01] MEDS: NOREPINEPHRINE 8 MG/250ML KIT 250 ML IV SCH (01:50)
[2024-06-01 02:27] LABS: Hematocrit 43.8 % (36.0-46.0); Hemoglobin 14.9 g/dL (12.2-16.2); Mean Corpuscular Hemoglobin 28.3 pg (28.0-32.0); Mean Corpuscular Volume 83.3 fL (80.0-100.0); Platelet Count (auto) 236 10^3/uL (140-450); Red Blood Cells 5.26 10^6/uL (4.0-5.20); Red Cell Distribution Width 16.1 % (11.8-14.3); White Blood Cell 25.3 10^3/uL (4.4-10.8)
[2024-06-01 02:39] LABS: Basophils % (manual) 0 (0.0-2.0); Blast Cells 0; Eosinophils % (manual) 0 (0-7); Metamyelocytes % 0; Myelocytes % 0; Promyelocytes % 0; Reactive Lymphocytes 0
[2024-06-01 02:44] LABS: Alanine Aminotransferase 31 U/L (7-40); Albumin 3.6 g/dL (3.2-4.8); Alkaline Phosphatase 44 U/L (46-116); Anion Gap 12 (5-15); Aspartate Aminotransferase 59 U/L (13-40); BUN/Creatinine Ratio 7.8 (10.0-20.0); Bilirubin, Total 2.2 mg/dL (0.2-1.0); Blood Urea Nitrogen 17 mg/dL (9-23); Calcium 8.6 mg/dL (8.7-10.4); Carbon Dioxide 14 mmol/L (20-30); Chloride 97 mmol/L (98-107); Creatine Kinase IFCC 331 U/L (34-145); Lipase 70 U/L (12-53); Potassium 4.9 mmol/L (3.5-5.1); Sodium 123 mmol/L (136-145); Total Protein 6.3 g/dL (5.7-8.2)
[2024-06-01 02:48] LABS: Glucose 429 mg/dL (74-106); Lactic Acid w/Reflex 4.2 mmol/L (0.4-2.0)
[2024-06-01] MEDS: ACETAMINOPHEN IV 1000 MG/100ML (10MG/ML) IV ONE (02:57)
[2024-06-01] MEDS: SODIUM CHLORIDE 0.9% 2,000 ML IV ONE (03:00)
[2024-06-01] MEDS: ACETAMINOPHEN IV 100 ML IV ONE (03:09)
[2024-06-01] MEDS: CEFEPIME 2GM/50ML NS 50 ML IV ONE (03:14)
[2024-06-01] MEDS ORDERED: VANCOMYCIN 1GM/200ML 200 ML IV ONE (03:15)
[2024-06-01 03:20] LABS: Band Neutrophils % (manual) 3; Lymphocytes % (manual) 7 (10.0-50.0); Monocytes % (manual) 2 (0-12)
[2024-06-01 03:20] LABS: Base Excess -12.7 mmol/L (-2.0-2.0)
[2024-06-01 03:21] LABS: Anisocytosis Slight; Hypersegmented Neutrophils Present; Platelet Estimate Adequate; Stomatocytes Few
[2024-06-01] MEDS: VANCOMYCIN 1GM/200ML 200 ML IV ONE ×2 (03:35→12:15)
[2024-06-01 03:42] LABS: Amphetamine Screen, Urine Neg (NEGATIVE); Barbiturate Scree,Urine Neg (NEGATIVE); Benzodiazephine Screen, Urine Neg (NEGATIVE); Cannabinoid Screen, Urine Neg (NEGATIVE); Cocaine Screen, Urine Neg (NEGATIVE); Opiate Scree,Urine Neg (NEGATIVE); Phencyclidine Screen, Urine Neg (NEGATIVE)
[2024-06-01 03:46] LABS: Urine Bacteria MANY /hpf (None Seen); Urine Blood 3+ /uL (Negative); Urine Clarity Ex.Turbid (Clear); Urine Color Dark-Brown (Yellow); Urine Protein, UAD 2+ (Negative); Urine Specific Gravity 1.007 (1.001-1.035); Urine Urobilinogen Normal (Negative); Urine WBC 3515 /hpf (0 - 5); Urine WBC Clumps PRESENT /hpf (None Seen)
[2024-06-01] MEDS: AMIODARONE BOLUS KIT 100 ML IV ONE (03:52)
[2024-06-01] MEDS: PROPOFOL 100 ML IV SCH (04:00)
[2024-06-01] MEDS: AMIODARONE 450mg/250ml AE 250 ML IV SCH ×2 (04:05→10:28)
[2024-06-01] MEDS: MIDAZOLAM DRIP 50 mg/50mL 50 ML IV ONE (04:20)
[2024-06-01 04:25] LABS: Magnesium 1.4 mg/dL (1.6-2.6)
[2024-06-01 04:26] LABS: Phosphorus 2.4 mg/dL (2.4-5.1)
[2024-06-01] MEDS: MIDAZOLAM DRIP 50 mg/50mL 50 ML IV SCH (04:36)
[2024-06-01] MEDS: dilTIAZem 25 MG/5 ML VIAL IV ONE ×2 (05:00→05:07)
[2024-06-01] MEDS: dilTIAZem 125mg/125ml BAG KIT 100 ML IV SCH (05:25)
[2024-06-01] MEDS: dilTIAZem 125mg/125ml BAG KIT 125 ML IV ONE (05:32)
[2024-06-01] MEDS: IOHEXOL 300 MG/ML 100ML BOTTLE IJ ONE (05:33)
[2024-06-01 10:15] LABS: Basophils # (auto) 0.1 10 ^3/uL (0-0.2); Basophils % (auto) 0.5 % (0.0-2.0); Eosinophils # (auto) 0 10 ^3/uL (0-0.8); Hematocrit 46.8 % (36.0-46.0); Hemoglobin 15.5 g/dL (12.2-16.2); Lymphocytes # (auto) 1.6 10 ^3/uL (0.4-5.4); Mean Corpuscular Hgb Conc. 33.1 g/dL (32.0-36.0); Mean Corpuscular Volume 84.6 fL (80.0-100.0); Monocytes % (auto) 11.6 % (0.0-12.0); Neutrophils # (auto) 21.3 10 ^3/uL (1.6-8.6); Neutrophils % (auto) 81.9 % (37.0-80.0); Nucleated Red Blood Cells % 0.3 %; Platelet Count (auto) 191 10^3/uL (140-450); Red Blood Cells 5.54 10^6/uL (4.0-5.20); Red Cell Distribution Width 15.8 % (11.8-14.3)
[2024-06-01 10:29] LABS: Alanine Aminotransferase 69 U/L (7-40); Alkaline Phosphatase 53 U/L (46-116); Calcium 8.4 mg/dL (8.5-10.1); Carbon Dioxide 13 mmol/L (20-30); Chloride 93 mmol/L (98-107); Sodium 123 mmol/L (136-145)
[2024-06-01 10:30] LABS: Albumin 3.8 g/dL (3.2-4.8); Anion Gap 17 (5-15); Aspartate Aminotransferase 150 U/L (13-40); BUN/Creatinine Ratio 7.2 (10.0-20.0); Bilirubin, Total 4.5 mg/dL (0.2-1.0); Blood Urea Nitrogen 20 mg/dL (9-23); Total Protein 6.4 g/dL (5.7-8.2)
[2024-06-01 10:33] LABS: INR 1.62 (0.9-1.15); Partial Thromboplastin Time 34.3 SEC (24.5-34.5); Prothrombin Time 16.6 sec (9.3-11.8)
[2024-06-01 10:37] LABS: Lactic Acid w/Reflex 3.3 mmol/L (0.4-2.0)
[2024-06-01 10:42] LABS: Glucose 528 mg/dL (74-106)
[2024-06-01] MEDS ORDERED: ONDANSETRON HCL 4 MG/2 ML VIAL IV PRN (11:30)
[2024-06-01] MEDS: INSULIN DRIP 100 UNIT/100ML 100 ML IV SCH (11:30)
[2024-06-01] MEDS ORDERED: NITROGLYCERIN 0.4 MG SL TAB SL PRN (11:30)
[2024-06-01] MEDS: LACTULOSE 20Gm/30ML SOLN NG ONE (11:30)
[2024-06-01] MEDS ORDERED: VANCOMYCIN PER PHARMACY 0 MG IV SCH (11:30)
[2024-06-01] MEDS ORDERED: BISACODYL 10 MG RECT SUPP PR PRN (11:30)
[2024-06-01] MEDS: SODIUM CHLORIDE 0.9% 1,000 ML IV SCH (11:30)
[2024-06-01] MEDS: BISACODYL 10 MG RECT SUPP PR ONE (11:30)
[2024-06-01] MEDS ORDERED: DEXTROSE (50%) 50ML SYRG IV PRN ×2 (11:30)
[2024-06-01] MEDS: INSULIN LANTUS (GLARGINE) 1 /0.01ml (100units/ml) SC ONE (11:30)
[2024-06-01] MEDS ORDERED: CEFEPIME 1GM/ 50ML 50 ML IV ONE (12:00)
[2024-06-01] MEDS: PANTOPRAZOLE 40mg/50ML NS AE 50 ML IV ONE (12:15)
[2024-06-01] MEDS: ACCU-CHEK COMFORT CURVE STRIP VI SCH (12:27)
[2024-06-01] MEDS: VASOPRESSIN 20 UNITS in SODIUM CHL 0.9% 99 ML IV SCH (12:33)
[2024-06-01] MEDS: SODIUM BICARB 8.4% 50Meq/50ml SYR Vial IV ONE (12:45)
[2024-06-01] MEDS: PHENYLEPHRINE IV 250 ML IV SCH (13:00)
[2024-06-01 13:06] LABS: Base Excess -16.7 mmol/L (-2.0-2.0)
[2024-06-01] MEDS ORDERED: SODIUM BICARB 50mEq/50ml Vial 150 ML in SOD CHL 0.45% 1,000 ML IV SCH (13:15)
[2024-06-01] MEDS ORDERED: SODIUM BICARB 8.4% 50Meq/50ml SYR Vial IV ONE (13:15)
[2024-06-01] MEDS ORDERED: SODIUM BICARB 50mEq/50ml Vial 75 ML in SOD CHL 0.45% 1,000 ML IV SCH (13:15)
[2024-06-01] MEDS: MEROPENEM 1GM IVPB 50 ML IV ONE (13:30)
[2024-06-01] MEDS: EPINEPHrine HCL 250 ML IV SCH (13:30)
[2024-06-01] MEDS: PANTOPRAZOLE 80 MG in SODIUM CHL 0.9% 100 ML IV ONE (13:58)
[2024-06-01] MEDS: SODIUM BICARB 50mEq/50ml Vial 75 ML in SOD CHL 0.45% 1,000 ML IV SCH (14:00)
[2024-06-01] MEDS: MAGNESIUM SULFATE 1GM/100ML 100 ML IV SCH (14:00)
[2024-06-01 19:25] LABS: Basophils # (auto) 0.1 10 ^3/uL (0-0.2); Basophils % (auto) 0.3 % (0.0-2.0); Eosinophils # (auto) 0 10 ^3/uL (0-0.8); Hematocrit 43.1 % (36.0-46.0); Hemoglobin 14.9 g/dL (12.2-16.2); Lymphocytes # (auto) 1.3 10 ^3/uL (0.4-5.4); Lymphocytes % (auto) 4.4 % (10.0-50.0); Mean Corpuscular Hemoglobin 28.6 pg (28.0-32.0); Mean Corpuscular Hgb Conc. 34.5 g/dL (32.0-36.0); Mean Corpuscular Volume 82.8 fL (80.0-100.0); Monocytes # (auto) 2.7 10 ^3/uL (0-1.3); Monocytes % (auto) 9.6 % (0.0-12.0); Neutrophils # (auto) 24.4 10 ^3/uL (1.6-8.6); Neutrophils % (auto) 85.7 % (37.0-80.0); Nucleated Red Blood Cells % 0.2 %; Platelet Count (auto) 116 10^3/uL (140-450); Red Cell Distribution Width 16.2 % (11.8-14.3); White Blood Cell 28.4 10^3/uL (4.4-10.8)
[2024-06-01 19:39] LABS: Chloride 97 mmol/L (98-107); Potassium 3.3 mmol/L (3.5-5.1)
[2024-06-01 19:40] LABS: Sodium 128 mmol/L (136-145)
[2024-06-01 19:41] LABS: Calcium 7.5 mg/dL (8.7-10.4)
[2024-06-01 19:43] LABS: Protein, Urine 198.7 mg/dL (0.0-11.9)
[2024-06-01 19:45] LABS: BUN/Creatinine Ratio 7.7 (10.0-20.0); Blood Urea Nitrogen 24 mg/dL (9-23); Glucose 346 mg/dL (74-106)
[2024-06-01 19:46] LABS: Creatinine, Urine 68.46 mg/dL (30.0-125.0)
[2024-06-01 20:55] LABS: Anion Gap 21 (5-15); Carbon Dioxide 10 mmol/L (20-30)
[2024-06-01] MEDS: VASOPRESSIN 20 UNIT/ML ONE (21:17)
[2024-06-01] MEDS: INSULIN LANTUS (GLARGINE) 1 /0.01ml (100units/ml) SC SCH (22:00)
[2024-06-01] MEDS: MEROPENEM 1GM IVPB 50 ML IV SCH (22:00)
[2024-06-01 23:22] LABS: Chloride 98 mmol/L (98-107); Potassium 3.6 mmol/L (3.5-5.1); Sodium 127 mmol/L (136-145)
[2024-06-01 23:23] LABS: Anion Gap 19.00001 (5-15); Calcium 8.3 mg/dL (8.7-10.4)
[2024-06-01 23:28] LABS: BUN/Creatinine Ratio 6.2 (10.0-20.0); Blood Urea Nitrogen 21 mg/dL (9-23); Glucose 310 mg/dL (74-106)
[2024-06-01 23:40] LABS: Carbon Dioxide < 10 mmol/L (20-30)
[2024-06-02] VITALS (12 sets, daily range): BP systolic 87–133; BP diastolic 45–64; PULSE 81–111; RESP 24–34; O2SAT 93–98
[2024-06-02] MEDS: ACETAMINOPHEN 650 MG RECT SUPP PR PRN (00:15)
[2024-06-02] MEDS: SODIUM BICARB 8.4% 50Meq/50ml SYR Vial IV ONE (01:47)
[2024-06-02 03:37] LABS: Base Excess -10.9 mmol/L (-2.0-2.0)
[2024-06-02 05:48] LABS: Lactic Acid w/Reflex 3.4 mmol/L (0.4-2.0)
[2024-06-02 07:05] LABS: Alanine Aminotransferase 165 U/L (7-40); Albumin 3.7 g/dL (3.2-4.8); Alkaline Phosphatase 50 U/L (46-116); Anion Gap 22.00001 (5-15); Aspartate Aminotransferase 271 U/L (13-40); Blood Urea Nitrogen 26 mg/dL (9-23); Chloride 97 mmol/L (98-107); Glucose 268 mg/dL (74-106); Magnesium 1.3 mg/dL (1.6-2.6); Potassium 3.3 mmol/L (3.5-5.1); Sodium 129 mmol/L (136-145)
[2024-06-02 07:06] LABS: Bilirubin, Total 2.1 mg/dL (0.2-1.0); Total Protein 6.4 g/dL (5.7-8.2)
[2024-06-02 07:08] LABS: Carbon Dioxide < 10 mmol/L (20-30)
[2024-06-02 07:16] LABS: Creatine Kinase IFCC 3407 U/L (34-145)
[2024-06-02 07:21] LABS: Bilirubin, Direct 1.7 mg/dL (<0.3)
[2024-06-02 07:27] LABS: Hematocrit 42.7 % (36.0-46.0); Hemoglobin 14.8 g/dL (12.2-16.2); Mean Corpuscular Hemoglobin 28.3 pg (28.0-32.0); Mean Corpuscular Hgb Conc. 34.6 g/dL (32.0-36.0); Mean Corpuscular Volume 81.8 fL (80.0-100.0); Red Blood Cells 5.22 10^6/uL (4.0-5.20); Red Cell Distribution Width 16.4 % (11.8-14.3)
[2024-06-02 07:47] LABS: Platelet Count (auto) 53 10^3/uL (140-450); White Blood Cell 30.3 10^3/uL (4.4-10.8)
[2024-06-02 07:49] LABS: Basophils % (manual) 0 (0.0-2.0); Blast Cells 0; Eosinophils % (manual) 0 (0-7); Metamyelocytes % 0; Myelocytes % 0; Promyelocytes % 0; Reactive Lymphocytes 0
[2024-06-02] MEDS: SODIUM BICARB 50mEq/50ml Vial 150 ML in D5W 5% 1,000 ML IV SCH (08:00)
[2024-06-02] MEDS: BUMETANIDE INJECTION 25 MG in GIVE UN-DILUTED 0 ML IV SCH (08:15)
[2024-06-02 08:59] LABS: Chloride 98 mmol/L (98-107)
[2024-06-02 09:00] LABS: Anion Gap 13 (5-15); Carbon Dioxide 17 mmol/L (20-30); Potassium 3.4 mmol/L (3.5-5.1); Sodium 128 mmol/L (136-145)
[2024-06-02] MEDS: MAGNESIUM SULFATE 1GM/100ML 100 ML IV SCH (09:00)
[2024-06-02 09:01] LABS: Calcium 7.7 mg/dL (8.5-10.1)
[2024-06-02 09:05] LABS: Glucose 273 mg/dL (74-106)
[2024-06-02 09:06] LABS: Blood Urea Nitrogen 26 mg/dL (9-23); Magnesium 1.3 mg/dL (1.6-2.6)
[2024-06-02] MEDS: INSULIN DRIP 100 UNIT/100ML 100 ML IV SCH ×3 (09:11→16:36)
[2024-06-02] MEDS: POTASSIUM CHL 20MEQ/100ML 100 ML IV SCH (09:30)
[2024-06-02 09:46] LABS: Band Neutrophils % (manual) 10; Lymphocytes % (manual) 5 (10.0-50.0); Monocytes % (manual) 9 (0-12); Platelet Estimate Decreased
[2024-06-02] MEDS: ASPirin 81 mg TAB PO SCH (10:00)
[2024-06-02] MEDS: ENOXAPARIN SOD 30 MG/0.3 ML SYRINGE SC SCH (10:00)
[2024-06-02 10:04] LABS: Base Excess -12.4 mmol/L (-2.0-2.0)
[2024-06-02] MEDS: INSULIN LANTUS (GLARGINE) 1 /0.01ml (100units/ml) SC SCH (10:46)
[2024-06-02] MEDS ORDERED: CEFEPIME 2GM/50ML 50 ML IV SCH (12:30)
[2024-06-02 14:14] LABS: Basophils # (auto) 0.1 10 ^3/uL (0-0.2); Basophils % (auto) 0.7 % (0.0-2.0); Eosinophils # (auto) 0 10 ^3/uL (0-0.8); Hematocrit 30.1 % (36.0-46.0); Hemoglobin 9.9 g/dL (12.2-16.2); Lymphocytes # (auto) 0.8 10 ^3/uL (0.4-5.4); Lymphocytes % (auto) 3.5 % (10.0-50.0); Mean Corpuscular Hemoglobin 27.8 pg (28.0-32.0); Mean Corpuscular Volume 84.2 fL (80.0-100.0); Monocytes # (auto) 1.2 10 ^3/uL (0-1.3); Monocytes % (auto) 5.4 % (0.0-12.0); Neutrophils # (auto) 19.8 10 ^3/uL (1.6-8.6); Neutrophils % (auto) 90.4 % (37.0-80.0); Nucleated Red Blood Cells % 0.1 %; Red Blood Cells 3.58 10^6/uL (4.0-5.20); Red Cell Distribution Width 16.6 % (11.8-14.3); White Blood Cell 21.9 10^3/uL (4.4-10.8)
[2024-06-02 14:16] LABS: Platelet Count (auto) 43 10^3/uL (140-450)
[2024-06-02] MEDS: LACTULOSE 20Gm/30ML SOLN PO ONE (14:23)
[2024-06-02] MEDS: DOXYCYCLINE 100MG/250ML 250 ML IV SCH (14:23)
[2024-06-02 14:50] LABS: Alanine Aminotransferase 156 U/L (7-40); Albumin 3.3 g/dL (3.2-4.8); Alkaline Phosphatase 46 U/L (46-116); Anion Gap 14 (5-15); Aspartate Aminotransferase 221 U/L (13-40); Blood Urea Nitrogen 30 mg/dL (9-23); Calcium 7.3 mg/dL (8.5-10.1); Carbon Dioxide 16 mmol/L (20-30); Chloride 99 mmol/L (98-107); Glucose 251 mg/dL (74-106); Potassium 3.7 mmol/L (3.5-5.1); Sodium 129 mmol/L (136-145)
[2024-06-02 14:51] LABS: Bilirubin, Total 1.6 mg/dL (0.2-1.0); Total Protein 5.2 g/dL (5.7-8.2)
[2024-06-02] MEDS: SODIUM CHLORIDE 0.9% 1,000 ML IV ONE (15:34)
[2024-06-02] MEDS: ACETAMINOPHEN 650 mg PER 20.3 mL UD GT PRN (15:36)
[2024-06-02] MEDS ORDERED: ARIP1TAB63 PO (16:58)
[2024-06-02] MEDS ORDERED: AMLO1TAB22 PO (17:14)
[2024-06-02] MEDS ORDERED: EMPA1TAB PO (17:14)
[2024-06-02] MEDS ORDERED: OMEP-448 PO (17:14)
[2024-06-02] MEDS ORDERED: ROPI1TAB78 PO (17:14)
[2024-06-02] MEDS ORDERED: FENO145T27 PO (17:14)
[2024-06-02] MEDS ORDERED: ALBU108A5 INH (17:14)
[2024-06-02] MEDS ORDERED: ROSU5TAB5 PO (17:14)
[2024-06-02] MEDS ORDERED: CHOL50007 PO (17:14)
[2024-06-02] MEDS ORDERED: METF-370 PO (17:14)
[2024-06-02] MEDS: MICAFUNGIN SODIUM 100 MG in SODIUM CHL 0.9% 100 ML IV ONE (19:58)
[2024-06-02] MEDS: MEROPENEM 500MG IVPB 50 ML IV SCH (22:19)
[2024-06-03] VITALS (72 sets, daily range): BP systolic 11–115; BP diastolic 16–75; PULSE 64–116; RESP 19–29; TEMP 98.4–100.6; O2SAT 90–99
[2024-06-03 03:51] LABS: Hemoglobin 13.7 g/dL (12.2-16.2); Mean Corpuscular Hemoglobin 28.1 pg (28.0-32.0); Red Blood Cells 4.88 10^6/uL (4.0-5.20)
[2024-06-03 03:55] LABS: Hematocrit 39.7 % (36.0-46.0); Mean Corpuscular Hgb Conc. 34.5 g/dL (32.0-36.0); Mean Corpuscular Volume 81.4 fL (80.0-100.0); Red Cell Distribution Width 16.9 % (11.8-14.3)
[2024-06-03 04:14] LABS: Alanine Aminotransferase 165 U/L (7-40); Albumin 3.4 g/dL (3.2-4.8); Alkaline Phosphatase 56 U/L (46-116); Anion Gap 15 (5-15); Aspartate Aminotransferase 196 U/L (13-40); Bilirubin, Total 1.4 mg/dL (0.2-1.0); Blood Urea Nitrogen 23 mg/dL (9-23); Calcium 7.4 mg/dL (8.7-10.4); Carbon Dioxide 17 mmol/L (20-30); Chloride 97 mmol/L (98-107); Glucose 177 mg/dL (74-106); Magnesium 1.5 mg/dL (1.6-2.6); Potassium 3.4 mmol/L (3.5-5.1); Sodium 129 mmol/L (136-145); Total Protein 5.9 g/dL (5.7-8.2)
[2024-06-03 04:16] LABS: Basophils % (manual) 0 (0.0-2.0); Blast Cells 0; Eosinophils % (manual) 0 (0-7); Myelocytes % 0; Promyelocytes % 0; Reactive Lymphocytes 0
[2024-06-03 04:24] LABS: Lactic Acid w/Reflex 3.1 mmol/L (0.4-2.0)
[2024-06-03 06:18] LABS: Band Neutrophils % (manual) 5; Lymphocytes % (manual) 2 (10.0-50.0); Metamyelocytes % 1; Monocytes % (manual) 2 (0-12)
[2024-06-03 06:19] LABS: Anisocytosis Slight; Large Platelets FEW; Platelet Estimate Decreased
[2024-06-03 06:20] LABS: Platelet Count (auto) 54 10^3/uL (140-450)
[2024-06-03 06:36] LABS: Base Excess -8.2 mmol/L (-2.0-2.0)
[2024-06-03] MEDS: POTASSIUM CHL 20MEQ/100ML 100 ML IV SCH (08:36)
[2024-06-03] MEDS: MAGNESIUM SULFATE 1GM/100ML 100 ML IV SCH (08:36)
[2024-06-03] MEDS ORDERED: DEXTROSE (50%) 50ML SYRG IV PRN (09:30)
[2024-06-03] MEDS: fentaNYL Drip 2500mCg/250mlNS 250 ML IV SCH (09:30)
[2024-06-03] MEDS: PANTOPRAZOLE 40 MG/10 ML VIAL INJ IV SCH (11:04)
[2024-06-03] MEDS: HYDROCORTISONE SOD SUCC 100 MG/2ML INJ VIAL IV SCH (11:05)
[2024-06-03] MEDS: ACCU-CHEK COMFORT CURVE STRIP VI SCH (12:59)
[2024-06-03] MEDS: InsuLIN REG 1unit/0.01ml Soln (100units/ml) SC SCH (13:03)
[2024-06-03 18:33] LABS: Anion Gap 13 (5-15); Carbon Dioxide 19 mmol/L (20-30); Chloride 94 mmol/L (98-107); Potassium 4.5 mmol/L (3.5-5.1); Sodium 126 mmol/L (136-145)
[2024-06-03 18:39] LABS: BUN/Creatinine Ratio 7.3 (10.0-20.0); Blood Urea Nitrogen 28 mg/dL (9-23); Glucose 343 mg/dL (74-106); Magnesium 1.9 mg/dL (1.6-2.6)
[2024-06-03] MEDS: MICAFUNGIN SODIUM 100 MG in SODIUM CHL 0.9% 100 ML IV SCH (18:44)
[2024-06-04] VITALS (107 sets, daily range): BP systolic 75–140; BP diastolic 35–90; PULSE 60–75; RESP 10–26; TEMP 97.3–100.6; O2SAT 94–97
[2024-06-04] MEDS: MAGNESIUM SULFATE 1GM/100ML 100 ML IV SCH (00:10)
[2024-06-04 04:09] LABS: Hematocrit 39.8 % (36.0-46.0); Hemoglobin 13.9 g/dL (12.2-16.2); Mean Corpuscular Hemoglobin 28.3 pg (28.0-32.0); Mean Corpuscular Hgb Conc. 34.9 g/dL (32.0-36.0); Mean Corpuscular Volume 81.2 fL (80.0-100.0); Platelet Count (auto) 69 10^3/uL (140-450); Red Cell Distribution Width 16.6 % (11.8-14.3); White Blood Cell 22.1 10^3/uL (4.4-10.8)
[2024-06-04 04:17] LABS: Alanine Aminotransferase 152 U/L (7-40); Alkaline Phosphatase 79 U/L (46-116); Anion Gap 13 (5-15); Aspartate Aminotransferase 145 U/L (13-40); BUN/Creatinine Ratio 7.3 (10.0-20.0); Blood Urea Nitrogen 27 mg/dL (9-23); Calcium 7.3 mg/dL (8.5-10.1); Carbon Dioxide 21 mmol/L (20-30); Chloride 93 mmol/L (98-107); Glucose 312 mg/dL (74-106); Potassium 3.7 mmol/L (3.5-5.1); Sodium 127 mmol/L (136-145)
[2024-06-04 04:18] LABS: Albumin 3.4 g/dL (3.2-4.8); Bilirubin, Total 1.3 mg/dL (0.2-1.0); Total Protein 5.8 g/dL (5.7-8.2)
[2024-06-04 04:26] LABS: Basophils % (manual) 0 (0.0-2.0); Blast Cells 0; Eosinophils % (manual) 0 (0-7); Metamyelocytes % 0; Myelocytes % 0; Promyelocytes % 0; Reactive Lymphocytes 0
[2024-06-04 06:37] LABS: Band Neutrophils % (manual) 1; Giant Platelets Few; Large Platelets FEW; Lymphocytes % (manual) 2 (10.0-50.0); Monocytes % (manual) 3 (0-12); Platelet Estimate Decreased
[2024-06-04] MEDS: DOXYCYCLINE 100MG/250ML 250 ML IV SCH (07:49)
[2024-06-04 08:18] LABS: Base Excess -5.7 mmol/L (-2.0-2.0)
[2024-06-04] MEDS ORDERED: DEXTROSE (50%) 50ML SYRG IV PRN (09:00)
[2024-06-04 09:26] LABS: Hepatitis B Surface Antigen Negative (Negative)
[2024-06-04 09:47] LABS: Hepatitis A Ab IgM Negative
[2024-06-04 09:48] LABS: Hepatitis B Core IgM Negative
[2024-06-04 09:49] LABS: Hepatitis C Antibody Negative (Negative)
[2024-06-04] MEDS: Glucerna 1.2 Cal 1Liter BOTTLE GT SCH (10:02)
[2024-06-04] MEDS: INSULIN LANTUS (GLARGINE) 1 /0.01ml (100units/ml) SC SCH (10:25)
[2024-06-04] MEDS: ACCU-CHEK COMFORT CURVE STRIP VI SCH (11:27)
[2024-06-04] MEDS: InsuLIN REG 1unit/0.01ml Soln (100units/ml) SC SCH (11:30)
[2024-06-04 16:09] LABS: Potassium 3.2 mmol/L (3.5-5.1)
[2024-06-04 16:18] LABS: Phosphorus 3.9 mg/dL (2.4-5.1)
[2024-06-04] MEDS: POTASSIUM CHL 20MEQ/100ML 100 ML IV SCH (19:48)
[2024-06-05] VITALS (106 sets, daily range): BP systolic 84–129; BP diastolic 40–63; PULSE 49–84; RESP 17–27; TEMP 96.6–99; O2SAT 90–97
[2024-06-05 04:27] LABS: Eosinophils # (auto) 0 10 ^3/uL (0-0.8); Hemoglobin 12.6 g/dL (12.2-16.2); Lymphocytes # (auto) 0.3 10 ^3/uL (0.4-5.4); Monocytes # (auto) 0.6 10 ^3/uL (0-1.3)
[2024-06-05 04:30] LABS: Basophils # (auto) 0 10 ^3/uL (0-0.2); Basophils % (auto) 0.5 % (0.0-2.0); Eosinophils % (auto) 0.1 % (0.0-7.0); Hematocrit 35.7 % (36.0-46.0); Lymphocytes % (auto) 3.6 % (10.0-50.0); Mean Corpuscular Hemoglobin 28.7 pg (28.0-32.0); Mean Corpuscular Hgb Conc. 35.4 g/dL (32.0-36.0); Monocytes % (auto) 6.8 % (0.0-12.0); Neutrophils # (auto) 7.8 10 ^3/uL (1.6-8.6); Nucleated Red Blood Cells % 0.1 %; Platelet Count (auto) 62 10^3/uL (140-450); Red Blood Cells 4.41 10^6/uL (4.0-5.20); Red Cell Distribution Width 16.1 % (11.8-14.3); White Blood Cell 8.8 10^3/uL (4.4-10.8)
[2024-06-05 04:43] LABS: Alanine Aminotransferase 109 U/L (7-40); Albumin 3.2 g/dL (3.2-4.8); Alkaline Phosphatase 75 U/L (46-116); Anion Gap 8 (5-15); Aspartate Aminotransferase 105 U/L (13-40); BUN/Creatinine Ratio 10.3 (10.0-20.0); Blood Urea Nitrogen 31 mg/dL (9-23); Calcium 7.4 mg/dL (8.5-10.1); Carbon Dioxide 29 mmol/L (20-30); Chloride 95 mmol/L (98-107); Glucose 234 mg/dL (74-106)
[2024-06-05 04:44] LABS: Bilirubin, Total 1.3 mg/dL (0.2-1.0); Sodium 132 mmol/L (136-145); Total Protein 5.4 g/dL (5.7-8.2)
[2024-06-05] MEDS ORDERED: Nepro With Carb Steady 1 Liter Bottle GT SCH (07:15)
[2024-06-05 07:43] LABS: Base Excess 4.1 mmol/L (-2.0-2.0)
[2024-06-05] MEDS: POTASSIUM CHL 20MEQ/100ML 100 ML IV SCH (08:07)
[2024-06-05] MEDS: BUMETANIDE INJECTION 12.5 MG in GIVE UN-DILUTED 0 ML IV SCH (08:44)
[2024-06-05] MEDS: INSULIN LANTUS (GLARGINE) 1 /0.01ml (100units/ml) SC SCH (11:21)
[2024-06-05] MEDS: ENOXAPARIN SOD 30 MG/0.3 ML SYRINGE SC SCH (11:22)
[2024-06-05] MEDS: Nepro With Carb Steady 1 Liter Bottle GT SCH (14:18)
[2024-06-06] VITALS (107 sets, daily range): BP systolic 83–139; BP diastolic 45–77; PULSE 50–74; RESP 16–25; TEMP 97.7–99.3; O2SAT 88–100
[2024-06-06 03:58] LABS: Basophils # (auto) 0 10 ^3/uL (0-0.2); Basophils % (auto) 0.4 % (0.0-2.0); Eosinophils # (auto) 0 10 ^3/uL (0-0.8); Hematocrit 38.9 % (36.0-46.0); Hemoglobin 13.4 g/dL (12.2-16.2); Lymphocytes # (auto) 0.3 10 ^3/uL (0.4-5.4); Lymphocytes % (auto) 2.6 % (10.0-50.0); Mean Corpuscular Hgb Conc. 34.5 g/dL (32.0-36.0); Mean Corpuscular Volume 81.2 fL (80.0-100.0); Monocytes # (auto) 0.9 10 ^3/uL (0-1.3); Neutrophils # (auto) 11.1 10 ^3/uL (1.6-8.6); Nucleated Red Blood Cells % 0.1 %; Platelet Count (auto) 111 10^3/uL (140-450); Red Blood Cells 4.79 10^6/uL (4.0-5.20); Red Cell Distribution Width 16.7 % (11.8-14.3); White Blood Cell 12.3 10^3/uL (4.4-10.8)
[2024-06-06 04:11] LABS: Alanine Aminotransferase 96 U/L (7-40); Albumin 3.4 g/dL (3.2-4.8); Alkaline Phosphatase 97 U/L (46-116); Anion Gap 7 (5-15); Aspartate Aminotransferase 102 U/L (13-40); BUN/Creatinine Ratio 16.5 (10.0-20.0); Blood Urea Nitrogen 40 mg/dL (9-23); Calcium 8.7 mg/dL (8.7-10.4); Carbon Dioxide 33 mmol/L (20-30); Chloride 98 mmol/L (98-107); Glucose 211 mg/dL (74-106); Potassium 2.9 mmol/L (3.5-5.1); Sodium 138 mmol/L (136-145)
[2024-06-06 04:12] LABS: Bilirubin, Total 1.2 mg/dL (0.2-1.0); Total Protein 5.7 g/dL (5.7-8.2)
[2024-06-06] MEDS: POTASSIUM CHL 20MEQ/100ML 100 ML IV SCH ×2 (07:08→16:34)
[2024-06-06 08:22] LABS: Base Excess 9.2 mmol/L (-2.0-2.0)
[2024-06-06 12:32] LABS: Basophils # (auto) 0 10 ^3/uL (0-0.2); Basophils % (auto) 0.1 % (0.0-2.0); Eosinophils # (auto) 0 10 ^3/uL (0-0.8); Hematocrit 39.2 % (36.0-46.0); Hemoglobin 13.4 g/dL (12.2-16.2); Lymphocytes # (auto) 0.5 10 ^3/uL (0.4-5.4); Lymphocytes % (auto) 3.8 % (10.0-50.0); Mean Corpuscular Hemoglobin 28.4 pg (28.0-32.0); Mean Corpuscular Hgb Conc. 34.2 g/dL (32.0-36.0); Mean Corpuscular Volume 83.1 fL (80.0-100.0); Monocytes # (auto) 1.1 10 ^3/uL (0-1.3); Monocytes % (auto) 8.9 % (0.0-12.0); Neutrophils % (auto) 87.2 % (37.0-80.0); Platelet Count (auto) 127 10^3/uL (140-450); Red Blood Cells 4.72 10^6/uL (4.0-5.20); Red Cell Distribution Width 16.5 % (11.8-14.3); White Blood Cell 12.6 10^3/uL (4.4-10.8)
[2024-06-06] MEDS: MAGNESIUM SULFATE 1GM/100ML 100 ML IV SCH (14:45)
[2024-06-06 15:13] LABS: Alanine Aminotransferase 93 U/L (7-40); Albumin 3.3 g/dL (3.2-4.8); Alkaline Phosphatase 96 U/L (46-116); Anion Gap 12 (5-15); Aspartate Aminotransferase 109 U/L (13-40); BUN/Creatinine Ratio 15.5 (10.0-20.0); Bilirubin, Total 0.9 mg/dL (0.2-1.0); Blood Urea Nitrogen 34 mg/dL (9-23); Carbon Dioxide 28 mmol/L (20-30); Chloride 99 mmol/L (98-107); Glucose 203 mg/dL (74-106); Potassium 3.4 mmol/L (3.5-5.1); Sodium 139 mmol/L (136-145); Total Protein 5.6 g/dL (5.7-8.2)
[2024-06-07] VITALS (108 sets, daily range): BP systolic 72–157; BP diastolic 41–75; PULSE 50–70; RESP 13–26; TEMP 97.9–99.5; O2SAT 88–100
[2024-06-07 03:26] LABS: Basophils # (auto) 0 10 ^3/uL (0-0.2); Basophils % (auto) 0.4 % (0.0-2.0); Eosinophils # (auto) 0 10 ^3/uL (0-0.8); Hematocrit 38.7 % (36.0-46.0); Hemoglobin 13.3 g/dL (12.2-16.2); Lymphocytes # (auto) 0.3 10 ^3/uL (0.4-5.4); Lymphocytes % (auto) 4.3 % (10.0-50.0); Mean Corpuscular Hemoglobin 28.8 pg (28.0-32.0); Mean Corpuscular Hgb Conc. 34.4 g/dL (32.0-36.0); Mean Corpuscular Volume 83.6 fL (80.0-100.0); Monocytes # (auto) 0.6 10 ^3/uL (0-1.3); Neutrophils # (auto) 7.1 10 ^3/uL (1.6-8.6); Neutrophils % (auto) 87.3 % (37.0-80.0); Nucleated Red Blood Cells % 0.1 %; Platelet Count (auto) 118 10^3/uL (140-450); Red Blood Cells 4.63 10^6/uL (4.0-5.20); Red Cell Distribution Width 15.9 % (11.8-14.3); White Blood Cell 8.1 10^3/uL (4.4-10.8)
[2024-06-07 03:45] LABS: Alanine Aminotransferase 85 U/L (7-40); Albumin 3.2 g/dL (3.2-4.8); Alkaline Phosphatase 101 U/L (46-116); Anion Gap 8 (5-15); Aspartate Aminotransferase 111 U/L (13-40); BUN/Creatinine Ratio 27.7 (10.0-20.0); Calcium 9.5 mg/dL (8.7-10.4); Carbon Dioxide 37 mmol/L (20-30); Chloride 97 mmol/L (98-107); Glucose 212 mg/dL (74-106); Sodium 142 mmol/L (136-145)
[2024-06-07 03:46] LABS: Bilirubin, Total 0.8 mg/dL (0.2-1.0); Total Protein 5.2 g/dL (5.7-8.2)
[2024-06-07 03:53] LABS: Blood Urea Nitrogen 51 mg/dL (9-23)
[2024-06-07] MEDS: POTASSIUM CHL 20MEQ/100ML 100 ML IV SCH (06:56)
[2024-06-07] MEDS: BUMETANIDE 2.5mg/10ml (0.25 mg/ml) INJ IV SCH (17:44)
[2024-06-07 18:19] LABS: Chloride 99 mmol/L (98-107); Potassium 3.6 mmol/L (3.5-5.1); Sodium 142 mmol/L (136-145)
[2024-06-07 18:20] LABS: Anion Gap 6 (5-15); Carbon Dioxide 37 mmol/L (20-30)
[2024-06-07 18:25] LABS: Glucose 233 mg/dL (74-106)
[2024-06-07 18:57] LABS: BUN/Creatinine Ratio 29.9 (10.0-20.0); Blood Urea Nitrogen 50 mg/dL (9-23)
[2024-06-08] VITALS (101 sets, daily range): BP systolic 91–146; BP diastolic 46–76; PULSE 51–81; RESP 13–29; TEMP 98.4–100.4; O2SAT 90–99
[2024-06-08 04:02] LABS: Basophils # (auto) 0.1 10 ^3/uL (0-0.2); Eosinophils # (auto) 0 10 ^3/uL (0-0.8); Eosinophils % (auto) 0.1 % (0.0-7.0); Hemoglobin 13.6 g/dL (12.2-16.2); Lymphocytes # (auto) 0.4 10 ^3/uL (0.4-5.4); Lymphocytes % (auto) 4.6 % (10.0-50.0); Mean Corpuscular Hemoglobin 29.1 pg (28.0-32.0); Mean Corpuscular Hgb Conc. 34.8 g/dL (32.0-36.0); Mean Corpuscular Volume 83.6 fL (80.0-100.0); Monocytes # (auto) 0.8 10 ^3/uL (0-1.3); Monocytes % (auto) 9.5 % (0.0-12.0); Neutrophils # (auto) 7.6 10 ^3/uL (1.6-8.6); Neutrophils % (auto) 84.8 % (37.0-80.0); Platelet Count (auto) 171 10^3/uL (140-450); Red Blood Cells 4.66 10^6/uL (4.0-5.20); Red Cell Distribution Width 16.3 % (11.8-14.3); White Blood Cell 8.9 10^3/uL (4.4-10.8)
[2024-06-08 04:17] LABS: Alanine Aminotransferase 83 U/L (7-40); Albumin 3.3 g/dL (3.2-4.8); Alkaline Phosphatase 83 U/L (46-116); Anion Gap 7 (5-15); Aspartate Aminotransferase 132 U/L (13-40); BUN/Creatinine Ratio 36.2 (10.0-20.0); Bilirubin, Total 0.8 mg/dL (0.2-1.0); Blood Urea Nitrogen 54 mg/dL (9-23); Carbon Dioxide 39 mmol/L (20-30); Chloride 99 mmol/L (98-107); Glucose 165 mg/dL (74-106); Potassium 3.4 mmol/L (3.5-5.1); Sodium 145 mmol/L (136-145); Total Protein 5.5 g/dL (5.7-8.2)
[2024-06-08 07:36] LABS: Base Excess 14.5 mmol/L (-2.0-2.0)
[2024-06-08] MEDS: ENOXAPARIN SOD 100 MG/1 ML SYRINGE SC SCH (11:55)
[2024-06-08] MEDS: POTASSIUM CHL 20MEQ/100ML 100 ML IV SCH (11:55)
[2024-06-08] MEDS: SODIUM CHLORIDE 0.9% 1,000 ML IV ONE (13:43)
[2024-06-08 14:44] LABS: Base Excess 12.4 mmol/L (-2.0-2.0)
[2024-06-08] MEDS: ACCU-CHEK COMFORT CURVE STRIP VI SCH (18:11)
[2024-06-08] MEDS: InsuLIN REG 1unit/0.01ml Soln (100units/ml) SC SCH (18:14)
[2024-06-08 18:55] LABS: Chloride 100 mmol/L (98-107); Potassium 3.7 mmol/L (3.5-5.1); Sodium 145 mmol/L (136-145)
[2024-06-08 18:56] LABS: Anion Gap 6 (5-15); Carbon Dioxide 39 mmol/L (20-30)
[2024-06-08 18:57] LABS: Calcium 10.1 mg/dL (8.7-10.4)
[2024-06-08 19:02] LABS: BUN/Creatinine Ratio 40.8 (10.0-20.0); Blood Urea Nitrogen 60 mg/dL (9-23); Glucose 286 mg/dL (74-106)
[2024-06-08] MEDS: MEROPENEM 1GM IVPB 50 ML IV SCH (21:59)
[2024-06-09] VITALS (92 sets, daily range): BP systolic 67–154; BP diastolic 31–88; PULSE 50–121; RESP 13–28; TEMP 98.4–100.8; O2SAT 89–100
[2024-06-09 04:07] LABS: Basophils # (auto) 0 10 ^3/uL (0-0.2); Basophils % (auto) 0.2 % (0.0-2.0); Eosinophils # (auto) 0 10 ^3/uL (0-0.8); Hematocrit 37.8 % (36.0-46.0); Hemoglobin 12.8 g/dL (12.2-16.2); Lymphocytes # (auto) 0.3 10 ^3/uL (0.4-5.4); Lymphocytes % (auto) 4.4 % (10.0-50.0); Mean Corpuscular Hemoglobin 28.7 pg (28.0-32.0); Mean Corpuscular Volume 84.5 fL (80.0-100.0); Monocytes # (auto) 0.6 10 ^3/uL (0-1.3); Monocytes % (auto) 8.9 % (0.0-12.0); Neutrophils # (auto) 6.1 10 ^3/uL (1.6-8.6); Neutrophils % (auto) 86.5 % (37.0-80.0); Nucleated Red Blood Cells % 0.1 %; Platelet Count (auto) 166 10^3/uL (140-450); Red Blood Cells 4.47 10^6/uL (4.0-5.20); Red Cell Distribution Width 16.5 % (11.8-14.3)
[2024-06-09 04:26] LABS: Alanine Aminotransferase 88 U/L (7-40); Albumin 3.4 g/dL (3.2-4.8); Alkaline Phosphatase 96 U/L (46-116); Anion Gap 6 (5-15); Aspartate Aminotransferase 172 U/L (13-40); Blood Urea Nitrogen 60 mg/dL (9-23); Calcium 10.2 mg/dL (8.7-10.4); Carbon Dioxide 37 mmol/L (20-30); Chloride 101 mmol/L (98-107); Glucose 285 mg/dL (74-106); Magnesium 1.9 mg/dL (1.6-2.6); Potassium 3.7 mmol/L (3.5-5.1); Sodium 144 mmol/L (136-145)
[2024-06-09 04:27] LABS: Bilirubin, Total 0.7 mg/dL (0.2-1.0); Total Protein 5.6 g/dL (5.7-8.2)
[2024-06-09] MEDS: POTASSIUM CHL 20MEQ/100ML 100 ML IV SCH (09:52)
[2024-06-09] MEDS: INSULIN LANTUS (GLARGINE) 1 /0.01ml (100units/ml) SC SCH (10:03)
[2024-06-09] MEDS: SODIUM CHLORIDE 0.9% 1,000 ML IV ONE (13:53)
[2024-06-10] VITALS (44 sets, daily range): BP systolic 11–162; BP diastolic 40–66; PULSE 49–84; RESP 17–25; TEMP 99–100; O2SAT 91–100
[2024-06-10 05:05] LABS: Anion Gap 7 (5-15); Carbon Dioxide 38 mmol/L (20-30); Chloride 106 mmol/L (98-107); Potassium 3.5 mmol/L (3.5-5.1)
[2024-06-10 05:06] LABS: Calcium 9.9 mg/dL (8.7-10.4)
[2024-06-10 05:11] LABS: BUN/Creatinine Ratio 46.5 (10.0-20.0); Blood Urea Nitrogen 59 mg/dL (9-23); Glucose 203 mg/dL (74-106); Magnesium 1.9 mg/dL (1.6-2.6)
[2024-06-10 05:29] LABS: Sodium 151 mmol/L (136-145)
[2024-06-10] MEDS: cefTRIAXone 1GM/50ML D5W 50 ML IV SCH (08:33)
[2024-06-10] MEDS: POTASSIUM CHL 20MEQ/100ML 100 ML IV SCH (10:32)
[2024-06-10] MEDS: FREE WATER GT SCH (12:00)
[2024-06-10 18:11] LABS: Chloride 109 mmol/L (98-107); Potassium 3.8 mmol/L (3.5-5.1); Sodium 153 mmol/L (136-145)
[2024-06-10 18:12] LABS: Anion Gap 4 (5-15); Calcium 9.8 mg/dL (8.7-10.4); Carbon Dioxide 40 mmol/L (20-30)
[2024-06-10 18:17] LABS: BUN/Creatinine Ratio 47.8 (10.0-20.0); Blood Urea Nitrogen 54 mg/dL (9-23); Glucose 127 mg/dL (74-106)
[2024-06-11] VITALS (57 sets, daily range): BP systolic 66–138; BP diastolic 21–60; PULSE 50–90; RESP 19–30; TEMP 99–100.4; O2SAT 92–98
[2024-06-11 03:54] LABS: Basophils # (auto) 0 10 ^3/uL (0-0.2); Basophils % (auto) 0.1 % (0.0-2.0); Eosinophils # (auto) 0 10 ^3/uL (0-0.8); Eosinophils % (auto) 0.3 % (0.0-7.0); Hematocrit 39.5 % (36.0-46.0); Hemoglobin 13.4 g/dL (12.2-16.2); Lymphocytes # (auto) 0.6 10 ^3/uL (0.4-5.4); Lymphocytes % (auto) 6.4 % (10.0-50.0); Mean Corpuscular Hgb Conc. 33.8 g/dL (32.0-36.0); Mean Corpuscular Volume 85.7 fL (80.0-100.0); Monocytes # (auto) 0.7 10 ^3/uL (0-1.3); Monocytes % (auto) 6.9 % (0.0-12.0); Neutrophils # (auto) 8.2 10 ^3/uL (1.6-8.6); Neutrophils % (auto) 86.3 % (37.0-80.0); Platelet Count (auto) 163 10^3/uL (140-450); Red Blood Cells 4.61 10^6/uL (4.0-5.20); Red Cell Distribution Width 16.3 % (11.8-14.3); White Blood Cell 9.4 10^3/uL (4.4-10.8)
[2024-06-11 04:03] LABS: Chloride 110 mmol/L (98-107); Potassium 3.5 mmol/L (3.5-5.1); Sodium 154 mmol/L (136-145)
[2024-06-11 04:04] LABS: Anion Gap 5 (5-15); Calcium 9.7 mg/dL (8.7-10.4); Carbon Dioxide 39 mmol/L (20-30)
[2024-06-11 04:09] LABS: BUN/Creatinine Ratio 47.3 (10.0-20.0); Blood Urea Nitrogen 52 mg/dL (9-23); Glucose 130 mg/dL (74-106)
[2024-06-11 04:10] LABS: Magnesium 1.9 mg/dL (1.6-2.6)
[2024-06-11 08:12] LABS: Base Excess 11.3 mmol/L (-2.0-2.0)
[2024-06-11] MEDS: D5W 5% 1,000 ML IV SCH (09:12)
[2024-06-11] MEDS ORDERED: DEXTROSE (50%) 50ML SYRG IV PRN (09:30)
[2024-06-11] MEDS: FREE WATER GT SCH (10:00)
[2024-06-11] MEDS: LACTATED RINGER'S 1,000 ML IV ONE (10:32)
[2024-06-11] MEDS: INSULIN LANTUS (GLARGINE) 1 /0.01ml (100units/ml) SC ONE (11:12)
[2024-06-11] MEDS: ACCU-CHEK COMFORT CURVE STRIP VI SCH (12:59)
[2024-06-11] MEDS: InsuLIN REG 1unit/0.01ml Soln (100units/ml) SC SCH (13:02)
[2024-06-12] VITALS (47 sets, daily range): BP systolic 96–145; BP diastolic 42–100; PULSE 61–108; RESP 16–27; TEMP 99.3–100.2; O2SAT 93–100
[2024-06-12 03:59] LABS: Basophils # (auto) 0 10 ^3/uL (0-0.2); Basophils % (auto) 0.2 % (0.0-2.0); Eosinophils # (auto) 0.1 10 ^3/uL (0-0.8); Eosinophils % (auto) 0.6 % (0.0-7.0); Hematocrit 36.5 % (36.0-46.0); Hemoglobin 12.1 g/dL (12.2-16.2); Lymphocytes # (auto) 0.5 10 ^3/uL (0.4-5.4); Lymphocytes % (auto) 5.6 % (10.0-50.0); Mean Corpuscular Hemoglobin 28.3 pg (28.0-32.0); Mean Corpuscular Hgb Conc. 33.2 g/dL (32.0-36.0); Mean Corpuscular Volume 85.1 fL (80.0-100.0); Monocytes # (auto) 0.7 10 ^3/uL (0-1.3); Monocytes % (auto) 7.4 % (0.0-12.0); Neutrophils # (auto) 8.5 10 ^3/uL (1.6-8.6); Neutrophils % (auto) 86.2 % (37.0-80.0); Platelet Count (auto) 155 10^3/uL (140-450); Red Blood Cells 4.29 10^6/uL (4.0-5.20); Red Cell Distribution Width 16.3 % (11.8-14.3); White Blood Cell 9.8 10^3/uL (4.4-10.8)
[2024-06-12 04:07] LABS: Chloride 109 mmol/L (98-107); Potassium 3.1 mmol/L (3.5-5.1); Sodium 149 mmol/L (136-145)
[2024-06-12 04:08] LABS: Anion Gap 5 (5-15); Carbon Dioxide 35 mmol/L (20-30)
[2024-06-12 04:13] LABS: BUN/Creatinine Ratio 42.3 (10.0-20.0); Blood Urea Nitrogen 47 mg/dL (9-23); Glucose 337 mg/dL (74-106)
[2024-06-12] MEDS: POTASSIUM CHLORIDE 20 MEQ in D5W 5% 1,000 ML IV SCH (08:00)
[2024-06-12] MEDS: POTASSIUM EFFERVESENT TAB 25 MEQ GT ONE (09:15)
[2024-06-12 11:26] LABS: Base Excess 10.1 mmol/L (-2.0-2.0)
[2024-06-12 14:09] LABS: Chloride 109 mmol/L (98-107); Potassium 3.7 mmol/L (3.5-5.1); Sodium 151 mmol/L (136-145)
[2024-06-12 14:10] LABS: Anion Gap 4 (5-15); Carbon Dioxide 38 mmol/L (20-30)
[2024-06-12 14:11] LABS: Calcium 9.6 mg/dL (8.7-10.4)
[2024-06-12 14:15] LABS: BUN/Creatinine Ratio 41.7 (10.0-20.0); Blood Urea Nitrogen 43 mg/dL (9-23); Glucose 292 mg/dL (74-106)
[2024-06-12] MEDS: D5W 5% 1,000 ML IV SCH (17:49)
[2024-06-13] VITALS (38 sets, daily range): BP systolic 92–137; BP diastolic 42–76; PULSE 51–89; RESP 15–26; TEMP 99.1–100.2; O2SAT 95–100
[2024-06-13 03:52] LABS: Basophils # (auto) 0 10 ^3/uL (0-0.2); Basophils % (auto) 0.2 % (0.0-2.0); Eosinophils # (auto) 0.1 10 ^3/uL (0-0.8); Eosinophils % (auto) 0.9 % (0.0-7.0); Hematocrit 32.6 % (36.0-46.0); Lymphocytes # (auto) 0.6 10 ^3/uL (0.4-5.4); Mean Corpuscular Hemoglobin 28.9 pg (28.0-32.0); Mean Corpuscular Hgb Conc. 33.8 g/dL (32.0-36.0); Mean Corpuscular Volume 85.4 fL (80.0-100.0); Monocytes # (auto) 0.7 10 ^3/uL (0-1.3); Monocytes % (auto) 7.4 % (0.0-12.0); Neutrophils # (auto) 7.6 10 ^3/uL (1.6-8.6); Neutrophils % (auto) 84.5 % (37.0-80.0); Platelet Count (auto) 126 10^3/uL (140-450); Red Blood Cells 3.82 10^6/uL (4.0-5.20); Red Cell Distribution Width 15.9 % (11.8-14.3); White Blood Cell 8.9 10^3/uL (4.4-10.8)
[2024-06-13 04:08] LABS: Alanine Aminotransferase 82 U/L (7-40); Albumin 2.7 g/dL (3.2-4.8); Alkaline Phosphatase 73 U/L (46-116); Anion Gap 5 (5-15); Aspartate Aminotransferase 92 U/L (13-40); BUN/Creatinine Ratio 40.5 (10.0-20.0); Blood Urea Nitrogen 34 mg/dL (9-23); Calcium 8.4 mg/dL (8.7-10.4); Carbon Dioxide 35 mmol/L (20-30); Chloride 110 mmol/L (98-107); Glucose 237 mg/dL (74-106); Magnesium 1.7 mg/dL (1.6-2.6); Sodium 150 mmol/L (136-145)
[2024-06-13 04:09] LABS: Bilirubin, Total 0.9 mg/dL (0.2-1.0); Total Protein 4.8 g/dL (5.7-8.2)
[2024-06-13] MEDS: POTASSIUM CHL 20MEQ/100ML 100 ML IV SCH (05:48)
[2024-06-13] MEDS ORDERED: DEXTROSE (50%) 50ML SYRG IV PRN (08:00)
[2024-06-13 08:09] LABS: Base Excess 8.5 mmol/L (-2.0-2.0)
[2024-06-13] MEDS: InsuLIN REG 1unit/0.01ml Soln (100units/ml) SC SCH (11:57)
[2024-06-13] MEDS: ACCU-CHEK COMFORT CURVE STRIP VI SCH (11:58)
[2024-06-13 12:12] LABS: Base Excess 8.4 mmol/L (-2.0-2.0)
[2024-06-13] MEDS: Glucerna 1.2 Cal 1Liter BOTTLE GT SCH (14:30)
[2024-06-13] MEDS: DexAMETHasone SOD PHOS 4 MG/1ML SDV INJ IV ONE (14:30)
[2024-06-13] MEDS: D5W 5% 1,000 ML IV SCH (16:30)
[2024-06-14] VITALS (32 sets, daily range): BP systolic 106–138; BP diastolic 48–72; PULSE 57–92; RESP 17–25; TEMP 98.8–100.2; O2SAT 94–100
[2024-06-14 04:28] LABS: Anion Gap 5 (5-15); Carbon Dioxide 34 mmol/L (20-30); Chloride 105 mmol/L (98-107); Potassium 3.6 mmol/L (3.5-5.1); Sodium 144 mmol/L (136-145)
[2024-06-14 04:29] LABS: Calcium 9.2 mg/dL (8.7-10.4)
[2024-06-14 04:34] LABS: Blood Urea Nitrogen 32 mg/dL (9-23); Glucose 257 mg/dL (74-106); Magnesium 1.8 mg/dL (1.6-2.6)
[2024-06-14 07:32] LABS: Base Excess 8.3 mmol/L (-2.0-2.0)
[2024-06-14] MEDS: DexAMETHasone SOD PHOS 10MG/1ML VIAL INJ IV ONE (09:00)
[2024-06-14 18:55] LABS: Urine Bacteria None Seen /hpf (None Seen)
[2024-06-14 19:18] LABS: Urine Blood 3+ /uL (Negative); Urine Budding Yeast MANY /hpf (None Seen); Urine Clarity Ex.Turbid (Clear); Urine Color Light-Orange (Yellow); Urine Protein, UAD 1+ (Negative); Urine Specific Gravity 1.016 (1.001-1.035); Urine Urobilinogen Normal (Negative); Urine WBC 1861 /hpf (0 - 5); Urine WBC Clumps PRESENT /hpf (None Seen); Urine pH 6.5 (5.0-9.0)
[2024-06-14] MEDS: DexAMETHasone SOD PHOS 4 MG/1ML SDV INJ IV SCH (22:21)
[2024-06-15] VITALS (36 sets, daily range): BP systolic 101–160; BP diastolic 43–90; PULSE 57–86; RESP 16–26; TEMP 98.2–99.3; O2SAT 93–100
[2024-06-15 03:41] LABS: Chloride 106 mmol/L (98-107); Potassium 3.6 mmol/L (3.5-5.1); Sodium 144 mmol/L (136-145)
[2024-06-15 03:42] LABS: Anion Gap 6 (5-15); Calcium 9.1 mg/dL (8.7-10.4); Carbon Dioxide 32 mmol/L (20-30)
[2024-06-15 03:47] LABS: Glucose 235 mg/dL (74-106)
[2024-06-15 03:48] LABS: BUN/Creatinine Ratio 35.5 (10.0-20.0); Blood Urea Nitrogen 27 mg/dL (9-23); Magnesium 1.9 mg/dL (1.6-2.6)
[2024-06-15] MEDS ORDERED: GLYCOPYRROLATE 0.2 MG/ML 1ML VIAL ONE (10:00)
[2024-06-15] MEDS ORDERED: EPINEPHrine HCL 1 MG/1 ML AMP ONE (10:00)
[2024-06-15] MEDS ORDERED: LIDOCAINE 2%HCL (LOCAL ANESTH.) INJ 20ML MDV ONE (10:00)
[2024-06-15] MEDS ORDERED: LIDOCAINE 2% JELLY 11ml (GLYDO) ONE (10:00)
[2024-06-15] MEDS: INSULIN LANTUS (GLARGINE) 1 /0.01ml (100units/ml) SC SCH (10:22)
[2024-06-15] MEDS ORDERED: SODIUM CHLORIDE LOCK 10 ML ONE (10:23)
[2024-06-15] MEDS: MIDAZOLAM HCL 5 MG/ML-1ML VIAL ONE (10:51)
[2024-06-15] MEDS: fentaNYL CITRATE 100 MCG/2 ML VL ONE (10:51)
[2024-06-15] MEDS ORDERED: LORazepam 2MG/ML-1ML VIAL IV PRN (16:15)
[2024-06-15] MEDS: LORazepam 2MG/ML-1ML VIAL IV PRN (16:18)
[2024-06-16] VITALS (45 sets, daily range): BP systolic 115–171; BP diastolic 49–87; PULSE 49–98; RESP 15–27; TEMP 98.1–99; O2SAT 91–100
[2024-06-16 03:50] LABS: Basophils # (auto) 0 10 ^3/uL (0-0.2); Basophils % (auto) 0.2 % (0.0-2.0); Eosinophils # (auto) 0 10 ^3/uL (0-0.8); Hematocrit 31.7 % (36.0-46.0); Lymphocytes # (auto) 0.4 10 ^3/uL (0.4-5.4); Lymphocytes % (auto) 5.5 % (10.0-50.0); Mean Corpuscular Hemoglobin 29.2 pg (28.0-32.0); Mean Corpuscular Hgb Conc. 34.7 g/dL (32.0-36.0); Mean Corpuscular Volume 84.3 fL (80.0-100.0); Monocytes # (auto) 0.5 10 ^3/uL (0-1.3); Neutrophils # (auto) 7.1 10 ^3/uL (1.6-8.6); Neutrophils % (auto) 88.3 % (37.0-80.0); Platelet Count (auto) 122 10^3/uL (140-450); Red Blood Cells 3.77 10^6/uL (4.0-5.20); Red Cell Distribution Width 15.6 % (11.8-14.3)
[2024-06-16 03:59] LABS: Anion Gap 6 (5-15); Carbon Dioxide 32 mmol/L (20-30); Chloride 107 mmol/L (98-107); Potassium 3.6 mmol/L (3.5-5.1); Sodium 145 mmol/L (136-145)
[2024-06-16 04:01] LABS: Calcium 9.1 mg/dL (8.7-10.4)
[2024-06-16 04:05] LABS: Glucose 174 mg/dL (74-106)
[2024-06-16 04:06] LABS: Blood Urea Nitrogen 27 mg/dL (9-23); Magnesium 1.8 mg/dL (1.6-2.6)
[2024-06-16 07:28] LABS: Base Excess 5.4 mmol/L (-2.0-2.0)
[2024-06-16] MEDS: hydrALAZINE HCL 20 MG/ML VL IV PRN (10:04)
[2024-06-16] MEDS ORDERED: DEXTROSE (50%) 50ML SYRG IV PRN (10:30)
[2024-06-16] MEDS: ACCU-CHEK COMFORT CURVE STRIP VI SCH (11:41)
[2024-06-16] MEDS: FUROSEMIDE 20 MG TAB PO SCH (11:42)
[2024-06-16] MEDS: InsuLIN REG 1unit/0.01ml Soln (100units/ml) SC SCH ×2 (11:42→21:56)
[2024-06-16] MEDS: amLODIPine BESYLATE 5 MG TAB PO ONE (11:42)
[2024-06-16] MEDS: Glucerna 1.2 Cal 1Liter BOTTLE GT SCH (21:54)
[2024-06-17] VITALS (46 sets, daily range): BP systolic 114–165; BP diastolic 47–78; PULSE 66–105; RESP 15–26; TEMP 97.9–99.1; O2SAT 95–99
[2024-06-17 04:40] LABS: Basophils # (auto) 0 10 ^3/uL (0-0.2); Basophils % (auto) 0.1 % (0.0-2.0); Eosinophils # (auto) 0 10 ^3/uL (0-0.8); Hematocrit 33.6 % (36.0-46.0); Hemoglobin 11.7 g/dL (12.2-16.2); Lymphocytes # (auto) 0.5 10 ^3/uL (0.4-5.4); Lymphocytes % (auto) 5.7 % (10.0-50.0); Mean Corpuscular Hemoglobin 29.1 pg (28.0-32.0); Mean Corpuscular Hgb Conc. 34.9 g/dL (32.0-36.0); Mean Corpuscular Volume 83.4 fL (80.0-100.0); Monocytes # (auto) 0.6 10 ^3/uL (0-1.3); Monocytes % (auto) 7.2 % (0.0-12.0); Neutrophils # (auto) 7.5 10 ^3/uL (1.6-8.6); Nucleated Red Blood Cells % 0.1 %; Platelet Count (auto) 141 10^3/uL (140-450); Red Blood Cells 4.03 10^6/uL (4.0-5.20); Red Cell Distribution Width 15.6 % (11.8-14.3); White Blood Cell 8.6 10^3/uL (4.4-10.8)
[2024-06-17 04:50] LABS: Chloride 106 mmol/L (98-107); Potassium 3.6 mmol/L (3.5-5.1); Sodium 145 mmol/L (136-145)
[2024-06-17 04:51] LABS: Anion Gap 6 (5-15); Carbon Dioxide 33 mmol/L (20-30)
[2024-06-17 04:56] LABS: BUN/Creatinine Ratio 37.7 (10.0-20.0); Blood Urea Nitrogen 29 mg/dL (9-23); Glucose 216 mg/dL (74-106)
[2024-06-17] MEDS: amLODIPine BESYLATE 5 MG TAB PO SCH (06:06)
[2024-06-17] MEDS: EPINEPHrine HCL 0.5 ML NEB ONE ×2 (11:15→11:16)
[2024-06-17] MEDS: FUROSEMIDE 20 MG/2 ML VIAL IV ONE (13:04)
[2024-06-18] VITALS (44 sets, daily range): BP systolic 102–159; BP diastolic 52–87; PULSE 62–117; RESP 15–24; TEMP 98.4–100; O2SAT 94–100
[2024-06-18 03:56] LABS: Basophils # (auto) 0 10 ^3/uL (0-0.2); Basophils % (auto) 0.1 % (0.0-2.0); Eosinophils # (auto) 0 10 ^3/uL (0-0.8); Hematocrit 32.8 % (36.0-46.0); Hemoglobin 11.4 g/dL (12.2-16.2); Lymphocytes # (auto) 0.4 10 ^3/uL (0.4-5.4); Lymphocytes % (auto) 4.7 % (10.0-50.0); Mean Corpuscular Hemoglobin 29.3 pg (28.0-32.0); Mean Corpuscular Hgb Conc. 34.8 g/dL (32.0-36.0); Mean Corpuscular Volume 84.2 fL (80.0-100.0); Monocytes # (auto) 0.7 10 ^3/uL (0-1.3); Monocytes % (auto) 7.4 % (0.0-12.0); Neutrophils # (auto) 7.7 10 ^3/uL (1.6-8.6); Neutrophils % (auto) 87.8 % (37.0-80.0); Platelet Count (auto) 142 10^3/uL (140-450); Red Cell Distribution Width 15.6 % (11.8-14.3); White Blood Cell 8.8 10^3/uL (4.4-10.8)
[2024-06-18 04:03] LABS: Chloride 106 mmol/L (98-107); Potassium 3.4 mmol/L (3.5-5.1); Sodium 145 mmol/L (136-145)
[2024-06-18 04:04] LABS: Anion Gap 5 (5-15); Calcium 8.9 mg/dL (8.7-10.4); Carbon Dioxide 34 mmol/L (20-30)
[2024-06-18 04:09] LABS: BUN/Creatinine Ratio 42.2 (10.0-20.0); Blood Urea Nitrogen 27 mg/dL (9-23); Glucose 164 mg/dL (74-106)
[2024-06-18] MEDS: POTASSIUM CHL 20MEQ/100ML 100 ML IV SCH (10:18)
[2024-06-18] MEDS: ENOXAPARIN SOD 150 MG/1 ML SYRINGE SC SCH (10:21)
[2024-06-18] MEDS: ALBUTEROL SULF 2.5 MG/0.5ML(0.5%) NEB SOLN NEB ONE (11:30)
[2024-06-18] MEDS: EPINEPHrine HCL 0.5 ML NEB NEB ONE (11:30)
[2024-06-18] MEDS: IPRATROPIUM BROM 0.5 MG/2.5ML INH SOL NEB ONE (11:30)
[2024-06-18] MEDS: ALBUTEROL SULF 2.5 MG/0.5ML(0.5%) NEB SOLN NEB SCH (12:00)
[2024-06-18] MEDS: IPRATROPIUM BROM 0.5 MG/2.5ML INH SOL NEB SCH (12:00)
[2024-06-18] MEDS: ALBUTEROL SULF 2.5 MG/0.5ML(0.5%) NEB SOLN ONE (13:43)
[2024-06-18] MEDS: EPINEPHrine HCL 0.5 ML NEB ONE (13:44)
[2024-06-18] MEDS: IPRATROPIUM BROM 0.5 MG/2.5ML INH SOL ONE (13:45)
[2024-06-18] MEDS: ACETYLCYSTEINE 20%(200MG/ML) SOL 4ML NEB SCH (14:00)
[2024-06-18 14:12] LABS: Base Excess 3.9 mmol/L (-2.0-2.0)
[2024-06-18] MEDS: DexAMETHasone SOD PHOS 4 MG/1ML SDV INJ IV SCH (14:20)
[2024-06-18] MEDS ORDERED: ACETAMINOPHEN 650 MG RECT SUPP PR PRN (19:15)
[2024-06-19] VITALS (71 sets, daily range): BP systolic 100–143; BP diastolic 47–85; PULSE 52–98; RESP 13–21; TEMP 99–99.7; O2SAT 92–100
[2024-06-19 04:09] LABS: Chloride 107 mmol/L (98-107); Potassium 3.9 mmol/L (3.5-5.1); Sodium 146 mmol/L (136-145)
[2024-06-19 04:11] LABS: Anion Gap 6 (5-15); Calcium 8.9 mg/dL (8.7-10.4); Carbon Dioxide 33 mmol/L (20-30)
[2024-06-19 04:16] LABS: BUN/Creatinine Ratio 38.5 (10.0-20.0); Blood Urea Nitrogen 25 mg/dL (9-23); Glucose 169 mg/dL (74-106)
[2024-06-19] MEDS: FUROSEMIDE 20 MG/2 ML VIAL IV SCH (07:40)
[2024-06-19 07:41] LABS: Base Excess 4.7 mmol/L (-2.0-2.0)
[2024-06-19 12:51] LABS: Base Excess 6.1 mmol/L (-2.0-2.0)
[2024-06-20] VITALS (60 sets, daily range): BP systolic 109–157; BP diastolic 48–85; PULSE 70–99; RESP 15–22; TEMP 99.3–100; O2SAT 90–98
[2024-06-20 08:01] LABS: Basophils # (auto) 0 10 ^3/uL (0-0.2); Basophils % (auto) 0.1 % (0.0-2.0); Eosinophils # (auto) 0 10 ^3/uL (0-0.8); Hematocrit 34.2 % (36.0-46.0); Hemoglobin 11.8 g/dL (12.2-16.2); Lymphocytes # (auto) 0.3 10 ^3/uL (0.4-5.4); Lymphocytes % (auto) 4.5 % (10.0-50.0); Mean Corpuscular Hemoglobin 28.9 pg (28.0-32.0); Mean Corpuscular Hgb Conc. 34.4 g/dL (32.0-36.0); Mean Corpuscular Volume 84.1 fL (80.0-100.0); Monocytes # (auto) 0.4 10 ^3/uL (0-1.3); Monocytes % (auto) 5.5 % (0.0-12.0); Neutrophils # (auto) 6.4 10 ^3/uL (1.6-8.6); Neutrophils % (auto) 89.9 % (37.0-80.0); Platelet Count (auto) 120 10^3/uL (140-450); Red Blood Cells 4.07 10^6/uL (4.0-5.20); Red Cell Distribution Width 15.7 % (11.8-14.3); White Blood Cell 7.1 10^3/uL (4.4-10.8)
[2024-06-20 08:16] LABS: Alanine Aminotransferase 65 U/L (7-40); Albumin 3.4 g/dL (3.2-4.8); Alkaline Phosphatase 95 U/L (46-116); Aspartate Aminotransferase 42 U/L (13-40); BUN/Creatinine Ratio 36.4 (10.0-20.0); Blood Urea Nitrogen 24 mg/dL (9-23); Calcium 9.1 mg/dL (8.7-10.4); Chloride 108 mmol/L (98-107); Glucose 144 mg/dL (74-106); Magnesium 1.6 mg/dL (1.6-2.6); Potassium 3.8 mmol/L (3.5-5.1); Sodium 147 mmol/L (136-145)
[2024-06-20 08:17] LABS: Bilirubin, Total 0.9 mg/dL (0.2-1.0); Total Protein 5.9 g/dL (5.7-8.2)
[2024-06-20 08:54] LABS: Anion Gap 7 (5-15); Carbon Dioxide 32 mmol/L (20-30)
[2024-06-20] MEDS: CEFEPIME 1GM/ 50ML 50 ML IV ONE (12:14)
[2024-06-20] MEDS ORDERED: DEXTROSE (50%) 50ML SYRG IV SCH (12:15)
[2024-06-20] MEDS: MAGNESIUM SULFATE 1GM/100ML 100 ML IV ONE (13:01)
[2024-06-20] MEDS: ACCU-CHEK COMFORT CURVE STRIP VI SCH (13:01)
[2024-06-20] MEDS: MICAFUNGIN SODIUM 100 MG in SODIUM CHL 0.9% 100 ML IV ONE (13:07)
[2024-06-20] MEDS: InsuLIN REG 1unit/0.01ml Soln (100units/ml) SC SCH (18:12)
[2024-06-20] MEDS ORDERED: TPN PER PHARMACY IV NR (20:00)
[2024-06-20] MEDS ORDERED: TPN PER PHARMACY 0 ML IV SCH (20:00)
[2024-06-20] MEDS: CEFEPIME 1GM/ 50ML 50 ML IV SCH (21:01)
[2024-06-20] MEDS: AMINO ACID INFUSION IN D10W 1,000 ML IV ONE (21:01)
[2024-06-20] MEDS: EPINEPHrine HCL 0.5 ML NEB NEB PRN (23:14)
[2024-06-21] VITALS (66 sets, daily range): BP systolic 113–159; BP diastolic 60–90; PULSE 72–112; RESP 15–28; TEMP 98.8–100.2; O2SAT 91–100
[2024-06-21 03:56] LABS: Alanine Aminotransferase 66 U/L (7-40); Albumin 3.5 g/dL (3.2-4.8); Alkaline Phosphatase 97 U/L (46-116); Anion Gap 8 (5-15); Aspartate Aminotransferase 38 U/L (13-40); BUN/Creatinine Ratio 36.1 (10.0-20.0); Blood Urea Nitrogen 26 mg/dL (9-23); Calcium 9.3 mg/dL (8.7-10.4); Carbon Dioxide 32 mmol/L (20-30); Chloride 107 mmol/L (98-107); Glucose 286 mg/dL (74-106); Magnesium 1.8 mg/dL (1.6-2.6); Phosphorus 2.9 mg/dL (2.4-5.1); Potassium 3.5 mmol/L (3.5-5.1); Sodium 147 mmol/L (136-145); Triglycerides 236 mg/dL (< 150)
[2024-06-21 03:57] LABS: Bilirubin, Total 1.1 mg/dL (0.2-1.0); Total Protein 6.1 g/dL (5.7-8.2)
[2024-06-21 04:01] LABS: Basophils # (auto) 0 10 ^3/uL (0-0.2); Basophils % (auto) 0.2 % (0.0-2.0); Eosinophils # (auto) 0 10 ^3/uL (0-0.8); Hemoglobin 12.5 g/dL (12.2-16.2); Lymphocytes # (auto) 0.3 10 ^3/uL (0.4-5.4); Mean Corpuscular Hemoglobin 29.1 pg (28.0-32.0); Mean Corpuscular Hgb Conc. 34.6 g/dL (32.0-36.0); Monocytes # (auto) 0.4 10 ^3/uL (0-1.3); Monocytes % (auto) 5.3 % (0.0-12.0); Neutrophils # (auto) 6.4 10 ^3/uL (1.6-8.6); Neutrophils % (auto) 90.5 % (37.0-80.0); Nucleated Red Blood Cells % 0.1 %; Platelet Count (auto) 123 10^3/uL (140-450); Red Blood Cells 4.28 10^6/uL (4.0-5.20); Red Cell Distribution Width 15.7 % (11.8-14.3)
[2024-06-21 04:08] LABS: INR 1.25 (0.9-1.15)
[2024-06-21] MEDS: MICAFUNGIN SODIUM 100 MG in SODIUM CHL 0.9% 100 ML IV SCH (07:38)
[2024-06-21] MEDS ORDERED: hydrOXYzine HCL 10 MG TAB PO PRN (13:00)
[2024-06-21] MEDS: LACTULOSE 20Gm/30ML SOLN PO SCH (13:26)
[2024-06-21] MEDS: FUROSEMIDE 20 MG/2 ML VIAL IV ONE (13:26)
[2024-06-21] MEDS: BISACODYL 10 MG RECT SUPP PR ONE (13:27)
[2024-06-21 15:32] LABS: Base Excess 8.7 mmol/L (-2.0-2.0)
[2024-06-21] MEDS: DOCUSATE ORAL LIQUID 100 MG/10 ML UD GT SCH (18:47)
[2024-06-21] MEDS: TPN PER PHARMACY IV NR (20:28)
[2024-06-22] VITALS (50 sets, daily range): BP systolic 88–157; BP diastolic 49–86; PULSE 85–110; RESP 16–27; TEMP 98.1–100; O2SAT 90–100
[2024-06-22 03:59] LABS: Basophils # (auto) 0 10 ^3/uL (0-0.2); Basophils % (auto) 0.1 % (0.0-2.0); Eosinophils # (auto) 0 10 ^3/uL (0-0.8); Hematocrit 35.5 % (36.0-46.0); Hemoglobin 12.2 g/dL (12.2-16.2); Lymphocytes # (auto) 0.3 10 ^3/uL (0.4-5.4); Lymphocytes % (auto) 3.2 % (10.0-50.0); Mean Corpuscular Hemoglobin 28.9 pg (28.0-32.0); Mean Corpuscular Hgb Conc. 34.3 g/dL (32.0-36.0); Mean Corpuscular Volume 84.3 fL (80.0-100.0); Monocytes # (auto) 0.6 10 ^3/uL (0-1.3); Monocytes % (auto) 5.8 % (0.0-12.0); Neutrophils # (auto) 9.1 10 ^3/uL (1.6-8.6); Neutrophils % (auto) 90.9 % (37.0-80.0); Nucleated Red Blood Cells % 0.1 %; Platelet Count (auto) 120 10^3/uL (140-450); Red Blood Cells 4.21 10^6/uL (4.0-5.20); Red Cell Distribution Width 16.1 % (11.8-14.3)
[2024-06-22 04:13] LABS: Alanine Aminotransferase 62 U/L (7-40); Albumin 3.4 g/dL (3.2-4.8); Alkaline Phosphatase 92 U/L (46-116); Anion Gap 8 (5-15); Aspartate Aminotransferase 32 U/L (13-40); Blood Urea Nitrogen 27 mg/dL (9-23); Calcium 9.2 mg/dL (8.7-10.4); Carbon Dioxide 31 mmol/L (20-30); Chloride 109 mmol/L (98-107); Glucose 320 mg/dL (74-106); Magnesium 1.9 mg/dL (1.6-2.6); Sodium 148 mmol/L (136-145)
[2024-06-22 04:14] LABS: Bilirubin, Total 1.1 mg/dL (0.2-1.0); Total Protein 5.8 g/dL (5.7-8.2)
[2024-06-22] MEDS: POTASSIUM EFFERVESENT TAB 25 MEQ GT ONE (05:26)
[2024-06-22] MEDS: CITALOPRAM HYDROBR 20 MG TAB PO SCH (09:25)
[2024-06-22] MEDS ORDERED: Glucerna 1.2 Cal 1Liter BOTTLE GT SCH (09:45)
[2024-06-22] MEDS: ARIPIPRAZOLE 30 MG PO SCH (10:23)
[2024-06-22 10:41] LABS: Urine Bacteria FEW /hpf (None Seen); Urine Blood 2+ /uL (Negative); Urine Budding Yeast MODERATE /hpf (None Seen); Urine Protein, UAD 1+ (Negative); Urine Specific Gravity 1.025 (1.001-1.035); Urine Urobilinogen Normal (Negative); Urine WBC 853 /hpf (0 - 5); Urine WBC Clumps PRESENT /hpf (None Seen); Urine pH 5.5 (5.0-9.0)
[2024-06-22 10:44] LABS: Urine Clarity Cloudy (Clear); Urine Color Yellow (Yellow)
[2024-06-22] MEDS: METOCLOPRAMIDE 10 mg/10ml ORAL soln GT SCH (14:00)
[2024-06-22] MEDS: POTASSIUM EFFERVESENT TAB 25 MEQ PO ONE (15:31)
[2024-06-22] MEDS: DexAMETHasone SOD PHOS 4 MG/1ML SDV INJ IV SCH (17:07)
[2024-06-23] VITALS (34 sets, daily range): BP systolic 110–158; BP diastolic 56–88; PULSE 85–114; RESP 19–29; TEMP 98.2–101.1; O2SAT 90–98
[2024-06-23 03:58] LABS: Basophils # (auto) 0.1 10 ^3/uL (0-0.2); Basophils % (auto) 0.6 % (0.0-2.0); Eosinophils # (auto) 0 10 ^3/uL (0-0.8); Hematocrit 37.3 % (36.0-46.0); Hemoglobin 12.5 g/dL (12.2-16.2); Lymphocytes # (auto) 0.7 10 ^3/uL (0.4-5.4); Lymphocytes % (auto) 5.5 % (10.0-50.0); Mean Corpuscular Hemoglobin 28.5 pg (28.0-32.0); Mean Corpuscular Hgb Conc. 33.5 g/dL (32.0-36.0); Mean Corpuscular Volume 84.9 fL (80.0-100.0); Monocytes # (auto) 0.8 10 ^3/uL (0-1.3); Monocytes % (auto) 6.7 % (0.0-12.0); Neutrophils # (auto) 10.7 10 ^3/uL (1.6-8.6); Neutrophils % (auto) 87.2 % (37.0-80.0); Platelet Count (auto) 109 10^3/uL (140-450); Red Blood Cells 4.39 10^6/uL (4.0-5.20); Red Cell Distribution Width 15.9 % (11.8-14.3); White Blood Cell 12.3 10^3/uL (4.4-10.8)
[2024-06-23 04:08] LABS: Alanine Aminotransferase 57 U/L (7-40); Albumin 3.4 g/dL (3.2-4.8); Alkaline Phosphatase 97 U/L (46-116); Anion Gap 9 (5-15); Aspartate Aminotransferase 29 U/L (13-40); BUN/Creatinine Ratio 42.5 (10.0-20.0); Bilirubin, Total 1.3 mg/dL (0.2-1.0); Blood Urea Nitrogen 31 mg/dL (9-23); Calcium 9.4 mg/dL (8.7-10.4); Carbon Dioxide 31 mmol/L (20-30); Chloride 109 mmol/L (98-107); Glucose 253 mg/dL (74-106); Potassium 3.9 mmol/L (3.5-5.1); Sodium 149 mmol/L (136-145); Total Protein 5.8 g/dL (5.7-8.2)
[2024-06-23] MEDS ORDERED: VANCOMYCIN PER PHARMACY 0 MG IV SCH (09:00)
[2024-06-23] MEDS: VANCOMYCIN 1GM/200ML 200 ML IV ONE (11:22)
[2024-06-23] MEDS: METOPROLOL TARTRATE 25 MG TAB PO SCH (11:23)
[2024-06-23] MEDS: FREE WATER GT SCH (12:00)
[2024-06-23] MEDS: VANCOMYCIN 1GM/200ML 200 ML IV SCH (23:07)
[2024-06-24] VITALS (29 sets, daily range): BP systolic 108–170; BP diastolic 33–80; PULSE 56–114; RESP 17–24; TEMP 97.7–99.5; O2SAT 90–98
[2024-06-24 04:35] LABS: Urine Bacteria None Seen /hpf (None Seen)
[2024-06-24 04:45] LABS: Urine Blood 2+ /uL (Negative); Urine Budding Yeast MANY /hpf (None Seen); Urine Clarity Ex.Turbid (Clear); Urine Color Light-Orange (Yellow); Urine Mucus FEW (None Seen); Urine Protein, UAD 1+ (Negative); Urine Specific Gravity 1.022 (1.001-1.035); Urine Urobilinogen Normal (Negative); Urine WBC 1756 /hpf (0 - 5); Urine WBC Clumps PRESENT /hpf (None Seen); Urine pH 5.5 (5.0-9.0)
[2024-06-24 09:37] LABS: Alanine Aminotransferase 57 U/L (7-40); Alkaline Phosphatase 96 U/L (46-116); Calcium 9.5 mg/dL (8.7-10.4); Carbon Dioxide 28 mmol/L (20-30); Chloride 111 mmol/L (98-107); Glucose 217 mg/dL (74-106); Potassium 4.3 mmol/L (3.5-5.1); Sodium 149 mmol/L (136-145)
[2024-06-24 09:38] LABS: Albumin 3.6 g/dL (3.2-4.8); Anion Gap 10 (5-15); Aspartate Aminotransferase 44 U/L (13-40); BUN/Creatinine Ratio 43.5 (10.0-20.0); Bilirubin, Total 1.3 mg/dL (0.2-1.0); Blood Urea Nitrogen 30 mg/dL (9-23)
[2024-06-24 09:40] LABS: Basophils # (auto) 0 10 ^3/uL (0-0.2); Basophils % (auto) 0.3 % (0.0-2.0); Eosinophils # (auto) 0 10 ^3/uL (0-0.8); Eosinophils % (auto) 0.1 % (0.0-7.0); Lymphocytes # (auto) 0.8 10 ^3/uL (0.4-5.4); Lymphocytes % (auto) 8.5 % (10.0-50.0); Mean Corpuscular Hemoglobin 28.6 pg (28.0-32.0); Mean Corpuscular Hgb Conc. 33.3 g/dL (32.0-36.0); Mean Corpuscular Volume 85.9 fL (80.0-100.0); Monocytes # (auto) 0.7 10 ^3/uL (0-1.3); Monocytes % (auto) 7.6 % (0.0-12.0); Neutrophils # (auto) 8.1 10 ^3/uL (1.6-8.6); Neutrophils % (auto) 83.5 % (37.0-80.0); Red Blood Cells 4.19 10^6/uL (4.0-5.20); Red Cell Distribution Width 16.6 % (11.8-14.3); White Blood Cell 9.7 10^3/uL (4.4-10.8)
[2024-06-24 09:49] LABS: Platelet Count (auto) 91 10^3/uL (140-450)
[2024-06-24] MEDS: METOPROLOL TARTRATE 25 MG TAB PO SCH (11:47)
[2024-06-25] VITALS (83 sets, daily range): BP systolic 87–146; BP diastolic 47–84; PULSE 53–114; RESP 11–27; TEMP 98.4–100.8; O2SAT 43–100
[2024-06-25] MEDS: ETOMIDATE (2MG/ML) 20ML VIAL IV ONE (14:23)
[2024-06-25] MEDS: ROCURONIUM 10MG/ML 10ML VIAL IV ONE (14:26)
[2024-06-25] MEDS: NOREPINEPHRINE 8 MG/250ML KIT 250 ML IV SCH (14:45)
[2024-06-25] MEDS ORDERED: EPINEPHrine HCL 1 MG/1 ML AMP ONE (15:03)
[2024-06-25] MEDS ORDERED: LIDOCAINE 2%HCL (LOCAL ANESTH.) INJ 20ML MDV ONE (15:03)
[2024-06-25] MEDS ORDERED: GLYCOPYRROLATE 0.2 MG/ML 1ML VIAL ONE (15:04)
[2024-06-25] MEDS ORDERED: LIDOCAINE HCL 2% TOP JELLY 5ML TOP ONE (15:04)
[2024-06-25] MEDS: fentaNYL Drip 2500mCg/250mlNS 250 ML IV SCH (15:14)
[2024-06-25] MEDS ORDERED: SODIUM CHLORIDE LOCK 10 ML ONE (15:22)
[2024-06-25] MEDS: MIDAZOLAM HCL 5 MG/ML-1ML VIAL ONE (15:31)
[2024-06-25 16:14] LABS: INR 1.21 (0.9-1.15); Prothrombin Time 12.6 sec (9.3-11.8)
[2024-06-25 18:02] LABS: Base Excess 1.7 mmol/L (-2.0-2.0)
[2024-06-25] MEDS: LIDOCAINE 1% (LOCAL ANESTH.) PF 5ml SDV ID ONE (18:29)
[2024-06-25] MEDS: SODIUM CHLOR 0.9% PF (SALINE LOCK) 10ML VIAL/SYR IV SCH (22:20)
[2024-06-26] VITALS (105 sets, daily range): BP systolic 76–134; BP diastolic 47–83; PULSE 53–98; RESP 14–19; TEMP 99–100.2; O2SAT 80–100
[2024-06-26 03:58] LABS: Anion Gap 7 (5-15); Carbon Dioxide 30 mmol/L (20-30); Chloride 110 mmol/L (98-107); Potassium 3.6 mmol/L (3.5-5.1); Sodium 147 mmol/L (136-145)
[2024-06-26 03:59] LABS: Basophils # (auto) 0 10 ^3/uL (0-0.2); Basophils % (auto) 0.1 % (0.0-2.0); Eosinophils # (auto) 0 10 ^3/uL (0-0.8); Eosinophils % (auto) 0.3 % (0.0-7.0); Hematocrit 29.9 % (36.0-46.0); Lymphocytes # (auto) 0.6 10 ^3/uL (0.4-5.4); Lymphocytes % (auto) 7.8 % (10.0-50.0); Mean Corpuscular Hemoglobin 28.7 pg (28.0-32.0); Mean Corpuscular Hgb Conc. 33.5 g/dL (32.0-36.0); Mean Corpuscular Volume 85.6 fL (80.0-100.0); Monocytes # (auto) 0.6 10 ^3/uL (0-1.3); Monocytes % (auto) 7.8 % (0.0-12.0); Neutrophils # (auto) 6.9 10 ^3/uL (1.6-8.6); Platelet Count (auto) 75 10^3/uL (140-450); Red Blood Cells 3.49 10^6/uL (4.0-5.20); Red Cell Distribution Width 16.6 % (11.8-14.3); White Blood Cell 8.2 10^3/uL (4.4-10.8)
[2024-06-26 04:04] LABS: BUN/Creatinine Ratio 44.1 (10.0-20.0); Blood Urea Nitrogen 26 mg/dL (9-23); Glucose 199 mg/dL (74-106)
[2024-06-26 07:23] LABS: Base Excess 2.3 mmol/L (-2.0-2.0)
[2024-06-26] MEDS: cefTRIAXone 1GM/50ML D5W 50 ML IV SCH (09:00)
[2024-06-26] MEDS ORDERED: DexAMETHasone SOD PHOS 4 MG/1ML SDV INJ IV SCH (10:00)
[2024-06-27] VITALS (98 sets, daily range): BP systolic 95–144; BP diastolic 32–79; PULSE 56–88; RESP 12–21; TEMP 99–99.9; O2SAT 93–100
[2024-06-27 07:44] LABS: Base Excess 1.2 mmol/L (-2.0-2.0)
[2024-06-27 14:30] LABS: Basophils # (auto) 0 10 ^3/uL (0-0.2); Basophils % (auto) 0.1 % (0.0-2.0); Eosinophils # (auto) 0.1 10 ^3/uL (0-0.8); Eosinophils % (auto) 1.8 % (0.0-7.0); Hematocrit 28.5 % (36.0-46.0); Hemoglobin 9.6 g/dL (12.2-16.2); Lymphocytes # (auto) 0.5 10 ^3/uL (0.4-5.4); Mean Corpuscular Hemoglobin 28.7 pg (28.0-32.0); Mean Corpuscular Hgb Conc. 33.7 g/dL (32.0-36.0); Mean Corpuscular Volume 85.2 fL (80.0-100.0); Monocytes # (auto) 0.5 10 ^3/uL (0-1.3); Monocytes % (auto) 6.4 % (0.0-12.0); Neutrophils # (auto) 6.2 10 ^3/uL (1.6-8.6); Neutrophils % (auto) 84.7 % (37.0-80.0); Nucleated Red Blood Cells % 0.1 %; Platelet Count (auto) 79 10^3/uL (140-450); Red Blood Cells 3.35 10^6/uL (4.0-5.20); Red Cell Distribution Width 16.7 % (11.8-14.3); White Blood Cell 7.4 10^3/uL (4.4-10.8)
[2024-06-27 14:45] LABS: Alanine Aminotransferase 80 U/L (7-40); Alkaline Phosphatase 90 U/L (46-116); Anion Gap 6 (5-15); Aspartate Aminotransferase 79 U/L (13-40); BUN/Creatinine Ratio 41.1 (10.0-20.0); Blood Urea Nitrogen 23 mg/dL (9-23); Calcium 8.8 mg/dL (8.7-10.4); Carbon Dioxide 30 mmol/L (20-30); Chloride 110 mmol/L (98-107); Glucose 177 mg/dL (74-106); Potassium 3.8 mmol/L (3.5-5.1); Sodium 146 mmol/L (136-145)
[2024-06-27 14:46] LABS: Bilirubin, Total 0.9 mg/dL (0.2-1.0); Total Protein 5.1 g/dL (5.7-8.2)
[2024-06-28] VITALS (44 sets, daily range): BP systolic 103–140; BP diastolic 51–89; PULSE 59–100; RESP 16–29; TEMP 99.1–100; O2SAT 95–100
[2024-06-28 04:14] LABS: Basophils # (auto) 0 10 ^3/uL (0-0.2); Basophils % (auto) 0.1 % (0.0-2.0); Eosinophils # (auto) 0.3 10 ^3/uL (0-0.8); Eosinophils % (auto) 3.6 % (0.0-7.0); Hematocrit 28.1 % (36.0-46.0); Hemoglobin 9.7 g/dL (12.2-16.2); Lymphocytes # (auto) 0.5 10 ^3/uL (0.4-5.4); Lymphocytes % (auto) 6.6 % (10.0-50.0); Mean Corpuscular Hemoglobin 29.4 pg (28.0-32.0); Mean Corpuscular Hgb Conc. 34.5 g/dL (32.0-36.0); Mean Corpuscular Volume 85.1 fL (80.0-100.0); Monocytes # (auto) 0.6 10 ^3/uL (0-1.3); Monocytes % (auto) 7.1 % (0.0-12.0); Neutrophils # (auto) 6.4 10 ^3/uL (1.6-8.6); Neutrophils % (auto) 82.6 % (37.0-80.0); Nucleated Red Blood Cells % 0.2 %; Platelet Count (auto) 77 10^3/uL (140-450); Red Cell Distribution Width 16.6 % (11.8-14.3); White Blood Cell 7.7 10^3/uL (4.4-10.8)
[2024-06-28 04:31] LABS: Alanine Aminotransferase 91 U/L (7-40); Alkaline Phosphatase 94 U/L (46-116); Anion Gap 6 (5-15); Aspartate Aminotransferase 94 U/L (13-40); BUN/Creatinine Ratio 41.2 (10.0-20.0); Bilirubin, Total 1.1 mg/dL (0.2-1.0); Blood Urea Nitrogen 21 mg/dL (9-23); Calcium 8.7 mg/dL (8.7-10.4); Carbon Dioxide 29 mmol/L (20-30); Chloride 110 mmol/L (98-107); Glucose 164 mg/dL (74-106); Potassium 3.6 mmol/L (3.5-5.1); Sodium 145 mmol/L (136-145); Total Protein 5.1 g/dL (5.7-8.2)
[2024-06-28] MEDS: Glucerna 1.2 Cal 1Liter BOTTLE GT SCH (09:38)
[2024-06-28 16:01] LABS: Base Excess 0.6 mmol/L (-2.0-2.0)
[2024-06-29] VITALS (40 sets, daily range): BP systolic 81–129; BP diastolic 39–69; PULSE 60–97; RESP 14–26; TEMP 99–100.2; O2SAT 94–100
[2024-06-29 07:30] LABS: Base Excess 3.1 mmol/L (-2.0-2.0)
[2024-06-29 09:33] LABS: Basophils # (auto) 0 10 ^3/uL (0-0.2); Basophils % (auto) 0.1 % (0.0-2.0); Eosinophils # (auto) 0.3 10 ^3/uL (0-0.8); Eosinophils % (auto) 4.2 % (0.0-7.0); Hematocrit 28.5 % (36.0-46.0); Hemoglobin 9.9 g/dL (12.2-16.2); Lymphocytes # (auto) 0.5 10 ^3/uL (0.4-5.4); Lymphocytes % (auto) 7.2 % (10.0-50.0); Mean Corpuscular Hgb Conc. 34.7 g/dL (32.0-36.0); Mean Corpuscular Volume 83.8 fL (80.0-100.0); Monocytes # (auto) 0.5 10 ^3/uL (0-1.3); Monocytes % (auto) 7.7 % (0.0-12.0); Neutrophils # (auto) 5.2 10 ^3/uL (1.6-8.6); Neutrophils % (auto) 80.8 % (37.0-80.0); Nucleated Red Blood Cells % 0.1 %; Platelet Count (auto) 84 10^3/uL (140-450); Red Blood Cells 3.41 10^6/uL (4.0-5.20); White Blood Cell 6.4 10^3/uL (4.4-10.8)
[2024-06-29 09:46] LABS: Anion Gap 7 (5-15); Carbon Dioxide 29 mmol/L (20-30); Chloride 107 mmol/L (98-107); Potassium 3.5 mmol/L (3.5-5.1); Sodium 143 mmol/L (136-145)
[2024-06-29 09:47] LABS: Calcium 8.9 mg/dL (8.7-10.4)
[2024-06-29 09:52] LABS: BUN/Creatinine Ratio 28.6 (10.0-20.0); Blood Urea Nitrogen 16 mg/dL (9-23); Glucose 197 mg/dL (74-106)
[2024-06-29] MEDS: LACTULOSE 20Gm/30ML SOLN PO SCH (11:40)
[2024-06-30] VITALS (57 sets, daily range): BP systolic 83–127; BP diastolic 38–71; PULSE 73–100; RESP 16–22; TEMP 99–100.4; O2SAT 95–98
[2024-06-30 04:33] LABS: Chloride 105 mmol/L (98-107); Potassium 3.5 mmol/L (3.5-5.1); Sodium 143 mmol/L (136-145)
[2024-06-30 04:34] LABS: Anion Gap 10 (5-15); Carbon Dioxide 28 mmol/L (20-30)
[2024-06-30 04:39] LABS: BUN/Creatinine Ratio 25.4 (10.0-20.0); Blood Urea Nitrogen 15 mg/dL (9-23); Glucose 258 mg/dL (74-106)
[2024-06-30] MEDS: POTASSIUM EFFERVESENT TAB 25 MEQ PO SCH (10:45)
[2024-06-30] MEDS: FUROSEMIDE 40 MG TAB PO SCH (10:46)
[2024-06-30 17:36] LABS: INR 1.1 (0.9-1.15); Partial Thromboplastin Time 23.4 SEC (24.5-34.5); Prothrombin Time 11.6 sec (9.3-11.8)
[2024-06-30] MEDS: fentaNYL Drip 2500mCg/250mlNS 250 ML IV SCH (17:45)
[2024-07-01] VITALS (105 sets, daily range): BP systolic 81–129; BP diastolic 39–73; PULSE 73–104; RESP 14–27; TEMP 98.8–100.4; O2SAT 95–100
[2024-07-01 04:12] LABS: INR 1.08 (0.9-1.15); Prothrombin Time 11.4 sec (9.3-11.8)
[2024-07-01 07:32] LABS: Basophils # (auto) 0 10 ^3/uL (0-0.2); Basophils % (auto) 0.2 % (0.0-2.0); Eosinophils # (auto) 0.2 10 ^3/uL (0-0.8); Eosinophils % (auto) 2.9 % (0.0-7.0); Hematocrit 28.6 % (36.0-46.0); Hemoglobin 9.9 g/dL (12.2-16.2); Lymphocytes # (auto) 0.5 10 ^3/uL (0.4-5.4); Lymphocytes % (auto) 7.5 % (10.0-50.0); Mean Corpuscular Hemoglobin 29.4 pg (28.0-32.0); Mean Corpuscular Hgb Conc. 34.6 g/dL (32.0-36.0); Monocytes # (auto) 0.5 10 ^3/uL (0-1.3); Neutrophils # (auto) 5.4 10 ^3/uL (1.6-8.6); Neutrophils % (auto) 82.4 % (37.0-80.0); Nucleated Red Blood Cells % 0.2 %; Platelet Count (auto) 81 10^3/uL (140-450); Red Blood Cells 3.36 10^6/uL (4.0-5.20); Red Cell Distribution Width 17.9 % (11.8-14.3); White Blood Cell 6.5 10^3/uL (4.4-10.8)
[2024-07-01 07:39] LABS: Alanine Aminotransferase 88 U/L (7-40); Albumin 2.8 g/dL (3.2-4.8); Alkaline Phosphatase 99 U/L (46-116); Anion Gap 5 (5-15); Aspartate Aminotransferase 39 U/L (13-40); BUN/Creatinine Ratio 30.4 (10.0-20.0); Bilirubin, Total 0.8 mg/dL (0.2-1.0); Blood Urea Nitrogen 17 mg/dL (9-23); Calcium 8.9 mg/dL (8.7-10.4); Carbon Dioxide 31 mmol/L (20-30); Chloride 107 mmol/L (98-107); Glucose 171 mg/dL (74-106); Magnesium 1.6 mg/dL (1.6-2.6); Potassium 3.4 mmol/L (3.5-5.1); Sodium 143 mmol/L (136-145)
[2024-07-01 07:46] LABS: Base Excess 3.5 mmol/L (-2.0-2.0)
[2024-07-01] MEDS: FUROSEMIDE 40 MG/4 ML VIAL IV SCH (09:46)
[2024-07-01] MEDS: MAGNESIUM SULFATE 1GM/100ML 100 ML IV SCH (09:46)
[2024-07-01] MEDS: POTASSIUM CHL 20MEQ/100ML 100 ML IV SCH (09:46)
[2024-07-01] MEDS: LACTULOSE 20Gm/30ML SOLN PO SCH (09:47)
[2024-07-01] MEDS: INSULIN LANTUS (GLARGINE) 1 /0.01ml (100units/ml) SC SCH (10:00)
[2024-07-01 10:54] LABS: % Iron Saturation 27.4 % (15-50)
[2024-07-01] MEDS ORDERED: METOCLOPRAMIDE 10 mg/10ml ORAL soln GT SCH (14:00)
[2024-07-01] MEDS: METOCLOPRAMIDE HCL 5MG/ml INJ 2ml VIAL IV SCH (15:13)
[2024-07-01 16:44] LABS: Base Excess 1.8 mmol/L (-2.0-2.0)
[2024-07-02] VITALS (82 sets, daily range): BP systolic 87–146; BP diastolic 40–74; PULSE 80–114; RESP 13–35; TEMP 97.4–99.3; O2SAT 94–100
[2024-07-02 03:58] LABS: Urine Bacteria None Seen /hpf (None Seen)
[2024-07-02 03:58] LABS: Basophils # (auto) 0 10 ^3/uL (0-0.2); Hemoglobin 7.6 g/dL (12.2-16.2); Nucleated Red Blood Cells % 0.1 %; White Blood Cell 5.1 10^3/uL (4.4-10.8)
[2024-07-02 04:04] LABS: Basophils % (auto) 0.1 % (0.0-2.0); Eosinophils # (auto) 0.1 10 ^3/uL (0-0.8); Hematocrit 22.4 % (36.0-46.0); Lymphocytes # (auto) 0.4 10 ^3/uL (0.4-5.4); Lymphocytes % (auto) 8.3 % (10.0-50.0); Mean Corpuscular Hemoglobin 29.3 pg (28.0-32.0); Mean Corpuscular Hgb Conc. 33.9 g/dL (32.0-36.0); Mean Corpuscular Volume 86.4 fL (80.0-100.0); Monocytes # (auto) 0.4 10 ^3/uL (0-1.3); Monocytes % (auto) 8.1 % (0.0-12.0); Neutrophils # (auto) 4.1 10 ^3/uL (1.6-8.6); Neutrophils % (auto) 81.5 % (37.0-80.0); Platelet Count (auto) 68 10^3/uL (140-450); Red Blood Cells 2.59 10^6/uL (4.0-5.20)
[2024-07-02 04:15] LABS: Alanine Aminotransferase 62 U/L (7-40); Alkaline Phosphatase 77 U/L (46-116); Anion Gap 9 (5-15); BUN/Creatinine Ratio 32.5 (10.0-20.0); Blood Urea Nitrogen 13 mg/dL (9-23); Carbon Dioxide 24 mmol/L (20-30); Chloride 113 mmol/L (98-107); Glucose 144 mg/dL (74-106); Potassium 2.9 mmol/L (3.5-5.1); Sodium 146 mmol/L (136-145)
[2024-07-02 04:16] LABS: Magnesium 1.5 mg/dL (1.6-2.6)
[2024-07-02 04:17] LABS: Albumin 2.3 g/dL (3.2-4.8); Aspartate Aminotransferase 28 U/L (13-40)
[2024-07-02 04:18] LABS: Bilirubin, Total 0.8 mg/dL (0.2-1.0); Total Protein 4.2 g/dL (5.7-8.2)
[2024-07-02 04:34] LABS: Urine Amorphous Crystal FEW /hpf (None Seen); Urine Blood 2+ /uL (Negative); Urine Budding Yeast MODERATE /hpf (None Seen); Urine Clarity Ex.Turbid (Clear); Urine Color Light-Orange (Yellow); Urine Protein, UAD 1+ (Negative); Urine Specific Gravity 1.014 (1.001-1.035); Urine Urobilinogen Normal (Negative); Urine WBC 1425 /hpf (0 - 5); Urine WBC Clumps PRESENT /hpf (None Seen); Urine pH 5.5 (5.0-9.0)
[2024-07-02 06:29] LABS: Base Excess 3.5 mmol/L (-2.0-2.0)
[2024-07-02] MEDS: FREE WATER GT SCH (07:00)
[2024-07-02] MEDS ORDERED: ROCURONIUM 10MG/ML 10ML VIAL IV ONE (09:52)
[2024-07-02] MEDS ORDERED: KETAMINE 50mg/ML 1ml syringe ONE (09:52)
[2024-07-02] MEDS ORDERED: LIDOCAINE 1% INJ PF 5ML AMP ONE (09:52)
[2024-07-02] MEDS ORDERED: ETOMIDATE (2MG/ML) 20ML VIAL IV ONE (09:52)
[2024-07-02] MEDS ORDERED: MIDAZOLAM HCL 2MG/2ML 2ml VIAL (1mg/ml) ONE (09:52)
[2024-07-02] MEDS ORDERED: HYDROmorphone HCL 2 MG/ML VL/or syr ONE (09:52)
[2024-07-02] MEDS ORDERED: fentaNYL CITRATE 0 ML ONE (09:52)
[2024-07-02] MEDS ORDERED: DexAMETHasone SOD PHOS 10MG/1ML VIAL INJ ONE (09:54)
[2024-07-02] MEDS: POTASSIUM CHL 20MEQ/100ML 100 ML IV SCH (10:31)
[2024-07-02] MEDS: CALCIUM GLUC 1,000mg/50ml-NS 50 ML IV ONE (10:33)
[2024-07-02] MEDS: MAGNESIUM SULFATE 1GM/100ML 100 ML IV SCH (13:27)
[2024-07-02] MEDS: MAGNESIUM SULFATE 1GM/100ML 200 ML IV ONE (13:43)
[2024-07-02] MEDS: FUROSEMIDE 40 MG/4 ML VIAL IV SCH (17:25)
[2024-07-02 18:22] LABS: Potassium 4.5 mmol/L (3.5-5.1)
[2024-07-03] VITALS (107 sets, daily range): BP systolic 81–166; BP diastolic 40–82; PULSE 64–102; RESP 8–29; TEMP 98.2–102; O2SAT 96–100
[2024-07-03 03:42] LABS: Basophils # (auto) 0 10 ^3/uL (0-0.2); Basophils % (auto) 0.3 % (0.0-2.0); Eosinophils # (auto) 0.1 10 ^3/uL (0-0.8); Eosinophils % (auto) 2.1 % (0.0-7.0); Hematocrit 28.7 % (36.0-46.0); Hemoglobin 9.7 g/dL (12.2-16.2); Lymphocytes # (auto) 0.5 10 ^3/uL (0.4-5.4); Lymphocytes % (auto) 8.1 % (10.0-50.0); Mean Corpuscular Hemoglobin 28.9 pg (28.0-32.0); Mean Corpuscular Hgb Conc. 33.8 g/dL (32.0-36.0); Mean Corpuscular Volume 85.3 fL (80.0-100.0); Monocytes # (auto) 0.6 10 ^3/uL (0-1.3); Monocytes % (auto) 8.9 % (0.0-12.0); Neutrophils # (auto) 5.2 10 ^3/uL (1.6-8.6); Neutrophils % (auto) 80.6 % (37.0-80.0); Platelet Count (auto) 90 10^3/uL (140-450); Red Blood Cells 3.36 10^6/uL (4.0-5.20); Red Cell Distribution Width 19.1 % (11.8-14.3); White Blood Cell 6.4 10^3/uL (4.4-10.8)
[2024-07-03 04:02] LABS: Alanine Aminotransferase 70 U/L (7-40); Alkaline Phosphatase 108 U/L (46-116); Aspartate Aminotransferase 34 U/L (13-40); BUN/Creatinine Ratio 27.9 (10.0-20.0); Bilirubin, Total 0.9 mg/dL (0.2-1.0); Blood Urea Nitrogen 17 mg/dL (9-23); Calcium 8.7 mg/dL (8.7-10.4); Chloride 106 mmol/L (98-107); Glucose 175 mg/dL (74-106); Magnesium 1.9 mg/dL (1.6-2.6); Potassium 3.9 mmol/L (3.5-5.1); Sodium 142 mmol/L (136-145); Total Protein 5.3 g/dL (5.7-8.2)
[2024-07-03 04:08] LABS: INR 1.16 (0.9-1.15); Partial Thromboplastin Time 23.1 SEC (24.5-34.5); Prothrombin Time 12.2 sec (9.3-11.8)
[2024-07-03 04:22] LABS: Anion Gap 4 (5-15); Carbon Dioxide 32 mmol/L (20-30)
[2024-07-03 07:15] LABS: Base Excess 4.9 mmol/L (-2.0-2.0)
[2024-07-03] MEDS ORDERED: fentaNYL CITRATE 100 MCG/2 ML VL ONE (07:24)
[2024-07-03] MEDS ORDERED: MIDAZOLAM HCL 2MG/2ML 2ml VIAL (1mg/ml) ONE (07:25)
[2024-07-03] MEDS ORDERED: HYDROmorphone HCL 2 MG/ML VL/or syr ONE (07:25)
[2024-07-03] MEDS: ACETAMINOPHEN IV 1000 MG/100ML (10MG/ML) IV ONE ×2 (07:40→15:47)
[2024-07-03] MEDS: LIDOCAINE W/ EPINEPHRINE 1% 20ML VIAL ONE (08:24)
[2024-07-03] MEDS: BUPIVACAINE HCL 0.25% P/F 10 ML VIAL ONE (08:24)
[2024-07-03] MEDS ORDERED: PROPOFOL 10 MG/ML 20 ML IV ONE (08:41)
[2024-07-03] MEDS: ROCURONIUM 10MG/ML 10ML VIAL IV ONE ×3 (09:30→09:59)
[2024-07-03 10:01] LABS: Base Excess -0.4 mmol/L (-2.0-2.0)
[2024-07-03] MEDS: methylPREDNISolone SOD SUCC 125 MG/2 ML VL ONE (10:26)
[2024-07-03] MEDS: methylPREDNISolone SOD SUCC 125 MG/2 ML VL IV ONE (10:32)
[2024-07-03] MEDS: EPINEPHrine HCL 0.5 ML NEB NEB ONE (10:44)
[2024-07-03] MEDS: methylPREDNISolone SOD SUCC 40 MG/ML VL ONE (10:56)
[2024-07-03] MEDS ORDERED: PHENYLEPHRINE HCL 10 MG/ML VL IV ONE (12:26)
[2024-07-03] MEDS: ACETAMINOPHEN 325 MG TAB PO PRN (13:47)
[2024-07-03] MEDS: ACETAMINOPHEN IV 100 ML IV ONE (15:46)
[2024-07-03] MEDS: MIDAZOLAM DRIP 50 mg/50mL 50 ML IV SCH (20:30)
[2024-07-03] MEDS: methylPREDNISolone SOD SUCC 40 MG/ML VL IV SCH (21:29)
[2024-07-04] VITALS (110 sets, daily range): BP systolic 88–141; BP diastolic 49–77; PULSE 80–102; RESP 12–32; TEMP 98.8–100; O2SAT 94–99
[2024-07-04 03:59] LABS: Basophils # (auto) 0 10 ^3/uL (0-0.2); Eosinophils # (auto) 0 10 ^3/uL (0-0.8); Hematocrit 29.1 % (36.0-46.0); Hemoglobin 9.8 g/dL (12.2-16.2); Lymphocytes # (auto) 0.3 10 ^3/uL (0.4-5.4); Mean Corpuscular Hemoglobin 28.9 pg (28.0-32.0); Mean Corpuscular Hgb Conc. 33.5 g/dL (32.0-36.0); Mean Corpuscular Volume 86.1 fL (80.0-100.0); Monocytes # (auto) 0.3 10 ^3/uL (0-1.3); Monocytes % (auto) 1.8 % (0.0-12.0); Neutrophils # (auto) 13.9 10 ^3/uL (1.6-8.6); Neutrophils % (auto) 96.2 % (37.0-80.0); Platelet Count (auto) 84 10^3/uL (140-450); Red Blood Cells 3.38 10^6/uL (4.0-5.20); Red Cell Distribution Width 18.4 % (11.8-14.3); White Blood Cell 14.5 10^3/uL (4.4-10.8)
[2024-07-04 04:17] LABS: Alanine Aminotransferase 71 U/L (7-40); Albumin 3.2 g/dL (3.2-4.8); Alkaline Phosphatase 111 U/L (46-116); Anion Gap 9 (5-15); Aspartate Aminotransferase 33 U/L (13-40); BUN/Creatinine Ratio 25.8 (10.0-20.0); Bilirubin, Total 1.1 mg/dL (0.2-1.0); Blood Urea Nitrogen 25 mg/dL (9-23); Calcium 8.5 mg/dL (8.7-10.4); Carbon Dioxide 28 mmol/L (20-30); Chloride 102 mmol/L (98-107); Glucose 331 mg/dL (74-106); Magnesium 1.9 mg/dL (1.6-2.6); Potassium 4.2 mmol/L (3.5-5.1); Sodium 139 mmol/L (136-145); Total Protein 5.4 g/dL (5.7-8.2)
[2024-07-04] MEDS: fentaNYL Drip 2500mCg/250mlNS 250 ML IV SCH (06:00)
[2024-07-04] MEDS: MIDAZOLAM DRIP 50 mg/50mL 50 ML IV SCH (06:00)
[2024-07-04 08:49] LABS: Base Excess 1.6 mmol/L (-2.0-2.0)
[2024-07-04] MEDS: INSULIN LANTUS (GLARGINE) 1 /0.01ml (100units/ml) SC SCH (09:40)
[2024-07-04] MEDS: ASPirin 81 mg TAB PO ONE (11:42)
[2024-07-04] MEDS: PROPOFOL 100 ML IV SCH (13:35)
[2024-07-05] VITALS (105 sets, daily range): BP systolic 87–116; BP diastolic 46–66; PULSE 66–86; RESP 15–28; TEMP 98.2–99.5; O2SAT 92–100
[2024-07-05 04:27] LABS: Basophils # (auto) 0 10 ^3/uL (0-0.2); Eosinophils # (auto) 0 10 ^3/uL (0-0.8); Hematocrit 28.6 % (36.0-46.0); Hemoglobin 9.8 g/dL (12.2-16.2); Lymphocytes # (auto) 0.4 10 ^3/uL (0.4-5.4); Lymphocytes % (auto) 2.7 % (10.0-50.0); Mean Corpuscular Hemoglobin 29.2 pg (28.0-32.0); Mean Corpuscular Hgb Conc. 34.2 g/dL (32.0-36.0); Mean Corpuscular Volume 85.3 fL (80.0-100.0); Monocytes # (auto) 0.3 10 ^3/uL (0-1.3); Monocytes % (auto) 2.5 % (0.0-12.0); Neutrophils % (auto) 94.8 % (37.0-80.0); Platelet Count (auto) 86 10^3/uL (140-450); Red Blood Cells 3.35 10^6/uL (4.0-5.20); Red Cell Distribution Width 18.4 % (11.8-14.3); White Blood Cell 13.7 10^3/uL (4.4-10.8)
[2024-07-05 04:40] LABS: INR 1.12 (0.9-1.15); Partial Thromboplastin Time 20.2 SEC (24.5-34.5); Prothrombin Time 11.8 sec (9.3-11.8)
[2024-07-05 04:43] LABS: Alanine Aminotransferase 63 U/L (7-40); Albumin 3.2 g/dL (3.2-4.8); Alkaline Phosphatase 112 U/L (46-116); Anion Gap 5 (5-15); Aspartate Aminotransferase 27 U/L (13-40); Blood Urea Nitrogen 23 mg/dL (9-23); Carbon Dioxide 32 mmol/L (20-30); Chloride 101 mmol/L (98-107); Glucose 208 mg/dL (74-106); Magnesium 1.7 mg/dL (1.6-2.6); Potassium 3.7 mmol/L (3.5-5.1); Sodium 138 mmol/L (136-145)
[2024-07-05 04:44] LABS: Bilirubin, Total 0.9 mg/dL (0.2-1.0); Total Protein 5.3 g/dL (5.7-8.2)
[2024-07-05 06:47] LABS: Base Excess 2.2 mmol/L (-2.0-2.0)
[2024-07-05] MEDS: ASPirin 81 mg TAB PO SCH (10:00)
[2024-07-06] VITALS (95 sets, daily range): BP systolic 87–139; BP diastolic 44–70; PULSE 61–81; RESP 13–24; TEMP 98.1–99; O2SAT 91–100
[2024-07-06 04:36] LABS: Basophils # (auto) 0 10 ^3/uL (0-0.2); Basophils % (auto) 0.2 % (0.0-2.0); Eosinophils # (auto) 0 10 ^3/uL (0-0.8); Hematocrit 29.7 % (36.0-46.0); Hemoglobin 10.2 g/dL (12.2-16.2); Lymphocytes # (auto) 0.4 10 ^3/uL (0.4-5.4); Lymphocytes % (auto) 3.1 % (10.0-50.0); Mean Corpuscular Hemoglobin 29.8 pg (28.0-32.0); Mean Corpuscular Hgb Conc. 34.4 g/dL (32.0-36.0); Mean Corpuscular Volume 86.7 fL (80.0-100.0); Monocytes # (auto) 0.3 10 ^3/uL (0-1.3); Monocytes % (auto) 2.6 % (0.0-12.0); Neutrophils # (auto) 11.2 10 ^3/uL (1.6-8.6); Neutrophils % (auto) 94.1 % (37.0-80.0); Platelet Count (auto) 86 10^3/uL (140-450); Red Blood Cells 3.43 10^6/uL (4.0-5.20); Red Cell Distribution Width 18.6 % (11.8-14.3); White Blood Cell 11.9 10^3/uL (4.4-10.8)
[2024-07-06 04:44] LABS: Chloride 101 mmol/L (98-107); Potassium 3.9 mmol/L (3.5-5.1); Sodium 137 mmol/L (136-145)
[2024-07-06 04:45] LABS: Anion Gap 8 (5-15); Carbon Dioxide 28 mmol/L (20-30)
[2024-07-06 04:46] LABS: Calcium 8.9 mg/dL (8.7-10.4)
[2024-07-06 04:50] LABS: Glucose 240 mg/dL (74-106)
[2024-07-06 04:51] LABS: BUN/Creatinine Ratio 25.9 (10.0-20.0); Blood Urea Nitrogen 22 mg/dL (9-23)
[2024-07-06 07:20] LABS: Base Excess 4.1 mmol/L (-2.0-2.0)
[2024-07-06] MEDS ORDERED: SODIUM CHLORIDE LOCK 0 ML ONE (10:51)
[2024-07-06] MEDS ORDERED: LIDOCAINE 2%HCL (LOCAL ANESTH.) INJ 20ML MDV ONE (10:51)
[2024-07-06] MEDS ORDERED: fentaNYL CITRATE 100 MCG/2 ML VL ONE (10:52)
[2024-07-06] MEDS ORDERED: MIDAZOLAM HCL 5 MG/ML-1ML VIAL ONE (10:52)
[2024-07-07] VITALS (106 sets, daily range): BP systolic 89–141; BP diastolic 45–74; PULSE 64–108; RESP 12–29; TEMP 98–100; O2SAT 93–100
[2024-07-07 04:17] LABS: Hematocrit 30.3 % (36.0-46.0); Hemoglobin 10.4 g/dL (12.2-16.2)
[2024-07-07 04:24] LABS: Chloride 103 mmol/L (98-107); Potassium 3.1 mmol/L (3.5-5.1); Sodium 142 mmol/L (136-145)
[2024-07-07 04:25] LABS: Anion Gap 7 (5-15); Carbon Dioxide 32 mmol/L (20-30)
[2024-07-07 04:26] LABS: Calcium 8.8 mg/dL (8.7-10.4)
[2024-07-07 04:30] LABS: BUN/Creatinine Ratio 36.1 (10.0-20.0); Blood Urea Nitrogen 26 mg/dL (9-23); Glucose 70 mg/dL (74-106)
[2024-07-07] MEDS: POTASSIUM CHL 20MEQ/100ML 100 ML IV ONE (06:53)
[2024-07-07 08:50] LABS: Basophils # (auto) 0 10 ^3/uL (0-0.2); Basophils % (auto) 0.2 % (0.0-2.0); Eosinophils # (auto) 0 10 ^3/uL (0-0.8); Eosinophils % (auto) 0.2 % (0.0-7.0); Hematocrit 30.4 % (36.0-46.0); Hemoglobin 10.4 g/dL (12.2-16.2); Lymphocytes # (auto) 0.5 10 ^3/uL (0.4-5.4); Lymphocytes % (auto) 7.9 % (10.0-50.0); Mean Corpuscular Hemoglobin 29.3 pg (28.0-32.0); Mean Corpuscular Hgb Conc. 34.1 g/dL (32.0-36.0); Monocytes # (auto) 0.4 10 ^3/uL (0-1.3); Monocytes % (auto) 6.3 % (0.0-12.0); Neutrophils # (auto) 5.8 10 ^3/uL (1.6-8.6); Neutrophils % (auto) 85.4 % (37.0-80.0); Nucleated Red Blood Cells % 0.1 %; Platelet Count (auto) 78 10^3/uL (140-450); Red Blood Cells 3.53 10^6/uL (4.0-5.20); Red Cell Distribution Width 18.8 % (11.8-14.3); White Blood Cell 6.8 10^3/uL (4.4-10.8)
[2024-07-07] MEDS ORDERED: CEPHALEXIN 250 MG CAP PO SCH (10:00)
[2024-07-07] MEDS: APIXABAN 5 MG TAB PO SCH (11:28)
[2024-07-07] MEDS ORDERED: CEPHALEXIN 250 MG CAP PO ONE (12:00)
[2024-07-07] MEDS: LACTULOSE 20Gm/30ML SOLN PO SCH (14:11)
[2024-07-07] MEDS: levETIRAcetam 500 MG/5ML ORAL SOLN UD GT ONE (16:09)
[2024-07-07] MEDS: levETIRAcetam 500 mg/100ml 100 ML IV SCH (21:33)
[2024-07-07] MEDS: levETIRAcetam 500 MG/5ML ORAL SOLN UD GT SCH (21:34)
[2024-07-08] VITALS (86 sets, daily range): BP systolic 80–144; BP diastolic 41–76; PULSE 70–102; RESP 14–28; TEMP 98.4–100; O2SAT 94–100
[2024-07-08 04:14] LABS: Basophils # (auto) 0 10 ^3/uL (0-0.2); Basophils % (auto) 0.1 % (0.0-2.0); Eosinophils # (auto) 0 10 ^3/uL (0-0.8); Eosinophils % (auto) 0.1 % (0.0-7.0); Hemoglobin 10.2 g/dL (12.2-16.2); Lymphocytes # (auto) 0.5 10 ^3/uL (0.4-5.4); Neutrophils # (auto) 6.5 10 ^3/uL (1.6-8.6); Red Cell Distribution Width 18.5 % (11.8-14.3)
[2024-07-08 04:17] LABS: Hematocrit 29.6 % (36.0-46.0); Lymphocytes % (auto) 6.7 % (10.0-50.0); Mean Corpuscular Hemoglobin 29.9 pg (28.0-32.0); Mean Corpuscular Hgb Conc. 34.3 g/dL (32.0-36.0); Mean Corpuscular Volume 87.1 fL (80.0-100.0); Monocytes # (auto) 0.3 10 ^3/uL (0-1.3); Monocytes % (auto) 4.6 % (0.0-12.0); Neutrophils % (auto) 88.5 % (37.0-80.0); Nucleated Red Blood Cells % 0.1 %; Platelet Count (auto) 58 10^3/uL (140-450); White Blood Cell 7.3 10^3/uL (4.4-10.8)
[2024-07-08 04:25] LABS: Alanine Aminotransferase 54 U/L (7-40); Alkaline Phosphatase 120 U/L (46-116); Anion Gap 7 (5-15); BUN/Creatinine Ratio 30.1 (10.0-20.0); Blood Urea Nitrogen 22 mg/dL (9-23); Calcium 8.4 mg/dL (8.7-10.4); Carbon Dioxide 33 mmol/L (20-30); Chloride 102 mmol/L (98-107); Glucose 204 mg/dL (74-106); Potassium 3.3 mmol/L (3.5-5.1); Sodium 142 mmol/L (136-145)
[2024-07-08 04:26] LABS: Aspartate Aminotransferase 40 U/L (13-40)
[2024-07-08 04:27] LABS: Total Protein 5.1 g/dL (5.7-8.2)
[2024-07-08] MEDS: POTASSIUM CHL 20MEQ/100ML 100 ML IV ONE (06:11)
[2024-07-08 07:19] LABS: Base Excess 6.2 mmol/L (-2.0-2.0)
[2024-07-08 10:19] LABS: Base Excess 9.2 mmol/L (-2.0-2.0)
[2024-07-08] MEDS: NOREPINEPHRINE 8 MG/250ML KIT 250 ML IV SCH (10:30)
[2024-07-09] MEDS ORDERED: FUROSEMIDE 40 MG/4 ML VIAL IV SCH (10:00)
== END 2024-07-08 18:40 | DRG 4 ==
LOC: ER 01:28 → EDBD 01:28 → TELE 11:46 → ICU WEST 06-03 09:08 → DOU IN ICU 06-23 09:18 → ICU WEST 06-25 14:56
PROVIDERS: ADMIT Internal Medicine Pulmonary Disease; ATTEND Nurse Practitioner Acute Care
PROC: 5A1955Z Respiratory Ventilation, Greater than 96 Consecutive Hours (ICD-10-PCS; principal; 2024-06-01)
PROC: 0BH17EZ Insertion of Endotracheal Airway into Trachea, Via Natural or Artificial Opening (ICD-10-PCS; 2024-06-01)
PROC: 02H633Z Insertion of Infusion Device into Right Atrium, Percutaneous Approach (ICD-10-PCS; 2024-06-03)
PROC: B548ZZA Ultrasonography of Superior Vena Cava, Guidance (ICD-10-PCS; 2024-06-03)
PROC: 0B9B8ZZ Drainage of Left Lower Lobe Bronchus, Via Natural or Artificial Opening Endoscopic (ICD-10-PCS; 2024-06-15)
PROC: 0B968ZZ Drainage of Right Lower Lobe Bronchus, Via Natural or Artificial Opening Endoscopic (ICD-10-PCS; 2024-06-15)
PROC: 5A09357 Assistance with Respiratory Ventilation, Less than 24 Consecutive Hours, Continuous Positive Airway Pressure (ICD-10-PCS; 2024-06-17)
PROC: 5A09457 Assistance with Respiratory Ventilation, 24-96 Consecutive Hours, Continuous Positive Airway Pressure (ICD-10-PCS; 2024-06-18)
PROC: 5A09357 Assistance with Respiratory Ventilation, Less than 24 Consecutive Hours, Continuous Positive Airway Pressure (ICD-10-PCS; 2024-06-20)
PROC: 5A09357 Assistance with Respiratory Ventilation, Less than 24 Consecutive Hours, Continuous Positive Airway Pressure (ICD-10-PCS; 2024-06-21)
PROC: 05HF33Z Insertion of Infusion Device into Left Cephalic Vein, Percutaneous Approach (ICD-10-PCS; 2024-06-22)
PROC: B54NZZA Ultrasonography of Left Upper Extremity Veins, Guidance (ICD-10-PCS; 2024-06-22)
PROC: 5A09357 Assistance with Respiratory Ventilation, Less than 24 Consecutive Hours, Continuous Positive Airway Pressure (ICD-10-PCS; 2024-06-22)
PROC: 5A09357 Assistance with Respiratory Ventilation, Less than 24 Consecutive Hours, Continuous Positive Airway Pressure (ICD-10-PCS; 2024-06-23)
PROC: 5A09357 Assistance with Respiratory Ventilation, Less than 24 Consecutive Hours, Continuous Positive Airway Pressure (ICD-10-PCS; 2024-06-24)
PROC: 5A1955Z Respiratory Ventilation, Greater than 96 Consecutive Hours (ICD-10-PCS; 2024-06-25)
PROC: 0B968ZZ Drainage of Right Lower Lobe Bronchus, Via Natural or Artificial Opening Endoscopic (ICD-10-PCS; 2024-06-25)
PROC: 02HV33Z Insertion of Infusion Device into Superior Vena Cava, Percutaneous Approach (ICD-10-PCS; 2024-06-25)
PROC: B548ZZA Ultrasonography of Superior Vena Cava, Guidance (ICD-10-PCS; 2024-06-25)
PROC: 5A09357 Assistance with Respiratory Ventilation, Less than 24 Consecutive Hours, Continuous Positive Airway Pressure (ICD-10-PCS; 2024-06-25)
PROC: 0BH17EZ Insertion of Endotracheal Airway into Trachea, Via Natural or Artificial Opening (ICD-10-PCS; 2024-06-25)
PROC: 0B110F4 Bypass Trachea to Cutaneous with Tracheostomy Device, Open Approach (ICD-10-PCS; 2024-07-03)
PROC: 0DH63UZ Insertion of Feeding Device into Stomach, Percutaneous Approach (ICD-10-PCS; 2024-07-06)
DX: A41.50 Gram-negative sepsis, unspecified (principal); E11.10 Type 2 diabetes mellitus with ketoacidosis without coma; J15.9 Unspecified bacterial pneumonia; G93.41 Metabolic encephalopathy; R65.21 Severe sepsis with septic shock; J96.01 Acute respiratory failure with hypoxia; I21.A1 Myocardial infarction type 2; N17.0 Acute kidney failure with tubular necrosis; G92.8 Other toxic encephalopathy; J15.69 Pneumonia due to other Gram-negative bacteria; T67.01XA Heatstroke and sunstroke, initial encounter; J44.0 Chronic obstructive pulmonary disease with (acute) lower respiratory infection; K92.2 Gastrointestinal hemorrhage, unspecified; M62.82 Rhabdomyolysis; E87.1 Hypo-osmolality and hyponatremia; I50.32 Chronic diastolic (congestive) heart failure; N13.6 Pyonephrosis; G93.1 Anoxic brain damage, not elsewhere classified; E87.0 Hyperosmolality and hypernatremia; Z68.43 Body mass index [BMI] 50.0-59.9, adult; E46 Unspecified protein-calorie malnutrition; I82.613 Acute embolism and thrombosis of superficial veins of upper extremity, bilateral; Z99.11 Dependence on respirator [ventilator] status; E83.42 Hypomagnesemia; D69.6 Thrombocytopenia, unspecified; E66.01 Morbid (severe) obesity due to excess calories; E78.5 Hyperlipidemia, unspecified; I11.0 Hypertensive heart disease with heart failure; K44.9 Diaphragmatic hernia without obstruction or gangrene; K74.60 Unspecified cirrhosis of liver; K80.20 Calculus of gallbladder without cholecystitis without obstruction; E87.6 Hypokalemia; B37.9 Candidiasis, unspecified; I48.0 Paroxysmal atrial fibrillation; X30.XXXA Exposure to excessive natural heat, initial encounter; Z88.5 Allergy status to narcotic agent; Z88.8 Allergy status to other drugs, medicaments and biological substances; Z79.899 Other long term (current) drug therapy; Z79.891 Long term (current) use of opiate analgesic; Z95.2 Presence of prosthetic heart valve; Z90.710 Acquired absence of both cervix and uterus; Z85.51 Personal history of malignant neoplasm of bladder; Z79.01 Long term (current) use of anticoagulants; Z79.4 Long term (current) use of insulin; Z87.440 Personal history of urinary (tract) infections; Z80.8 Family history of malignant neoplasm of other organs or systems; Z87.891 Personal history of nicotine dependence; Z81.8 Family history of other mental and behavioral disorders; Z82.49 Family history of ischemic heart disease and other diseases of the circulatory system; Z86.74 Personal history of sudden cardiac arrest; Z95.0 Presence of cardiac pacemaker; Y93.89 Activity, other specified; Y92.89 Other specified places as the place of occurrence of the external cause; Y99.8 Other external cause status
CPT/HCPCS: 31500; 31645; 31720; 36415; 36556; 36569; 36600; 43239; 43246; 70450; 70490; 70551; 71045; 71260; 72125; 74018; 74177; 76604; 76700; 76775; 76937; 80048; 80053; 80074; 80076; 80202; 80307; 81001; 82010; 82140; 82310; 82550; 82565; 82570; 82728; 82805; 82962; 82977; 83036; 83540; 83550; 83605; 83615; 83690; 83735; 83880; 83930; 83935; 84100; 84132; 84156; 84295; 84300; 84443; 84478; 84484; 85007; 85014; 85018; 85025; 85027; 85045; 85379; 85384; 85610; 85730; 86850; 86900; 86901; 86920; 87040; 87070; 87077; 87081; 87086; 87088; 87186; 87205; 92507; 93005; 93306; 93886; 93970; 93971; 94002; 94003; 94640; 94660; 95819; 96365; 96366; 96367; 96375; 97110; 97163; 97530; 99291; 99292; G0378; J0131; J0171; J0692; J1100; J1815; J2185; J2248; J2250; J2470; J2704; J3480; J3490; J7060